=== PATIENT | male | born 1970 | race Caucasian/White ===

== ENCOUNTER 2016-10-26 00:46 | Observation (INO) | payer MEDICARE, OTHER ==
[~2016-10-26] VITALS: Ht 167.6 cm; Wt 78.9 kg
[2016-10-26] VITALS (13 sets, daily range): BP systolic 115–161; BP diastolic 56–87
[~2016-10-26 00:46] MED LIST: AMIT50TA PO; AUGM500T34 PO; BACITAB3 PO; BENA5TA PO; FLAG500T PO; INSUNSD SC; LYRI75CA PO; OXYC20TA21 PO
[2016-10-26] MEDS ORDERED: TOUJ1.2I SC (03:01)
[2016-10-26] MEDS ORDERED: INSULIN HUMAN REGULAR 100 UNITS in NS 99 ML IV SCH (03:01)
[2016-10-26] MEDS ORDERED: NS 1,000 ML IV SCH (03:01)
--- NOTE | 2016-10-26 03:21 | HPEPDOC ---
Medical History and Physical Date of Admission Oct 26, 2016 at 02:30 History and Physical PRIMARY CARE PROVIDER: ATTENDING: Savannah Arteaga MD CHIEF COMPLAINT: Nausea/vomiting HISTORY OF PRESENT ILLNESS: This is a 46-year-old type 1 diabetic with peripheral neuropathy who presented to [facility] complaining of nausea/vomiting and found to have DKA. The patient was transferred here for further management of his DKA. Patient states that he had been taking levemir 60 units a.m., 20 units afternoon , 20 units p.m., and on Tuesday he was changed to 15 units daily of toujeo by his primary care physician. Patient denies any recent upper respiratory tract symptoms, no dysuria, no diarrhea. No source of infection. Patient denies chest pain/restless/palpitations. Patient had nausea and vomited his cereal this morning. States that he's been having epigastric pain since this morning. Upon presentation to [facility], patient's states his abdominal pain is completely resolved. He is no longer nauseous or vomiting. At [facility], patient was noted to have DKA with a Anion gap of 27, sodium 128, blood sugar 630, potassium 5.0, creatinine 1.6, cardiac enzymes negative, lactic acid 2.7, A1c 10.5, the WBC 14, lipase within normal limits. Patient also had a CT of the abdomen and pelvis which was relatively unremarkable however hiss bladder was distended and it was noted that bladder outlet syndrome should be excluded. The patient's stated that he had voided at [facility] and was noted that he voided 500 mL prior to coming to [facility]. PAST MEDICAL HISTORY: As per HPI PAST SURGICAL HISTORY: Cholecystectomy, hernia repair SOCIAL HISTORY: Occasional alcohol, no tobacco or illicit drugs. FAMILY HISTORY: M, B - DM ALLERGIES: Please see below. REVIEW OF SYSTEMS: HEENT: Denies sore throat/headache CARDIOVASCULAR: Denies chest pain/palpitations RESPIRATORY: No shortness of breath/cough GASTROINTESTINAL: + nausea/vomiting GENITOURINARY: Denies dysuria/urinary urgency. MUSCULOSKELETAL: Denies myalgias/arthralgias NEUROLOGICAL: Denies any focal weakness Rest of ROS negative. HOME MEDICATIONS: Please see below. PHYSICAL EXAMINATION: Vitals: (see below) General: No acute distress, laying comfortably in bed. HEENT: Moist mucous membranes. Neck: No JVD or lymphadenopathy Cardiac: RRR, No murmurs Pulm: Clear to auscultation b/l. No wheezing, rhonchi Abd: NT/ND + BS Ext: No edema or cyanosis LABORATORY DATA: See below. IMAGING: MICROBIOLOGY: Please see below. ASSESSMENT/PLAN: 1. DKA- likely secondary to a recent change in the patient's insulin. Patient states he is compliant. No source of infection. EKG with sinus tachycardia with no acute ST changes. Cardiac enzymes negative. We'll continue insulin drip and continue to monitor the anion gap. Patient has received a total 3 L normal saline thus far. Will be continued on normal saline at 200 mL an hour. Continue insulin drip protocol and monitor in ICU. 2. Diabetic neuropathy- on Lyrica 3. Hypertension- on benazepril DVT prophylaxis- heparin subcutaneous Patient will be followed by Dr. Savannah Arteaga starting 10/18/16 7 AM. Vital Signs Vital Signs Date Time Temp Pulse Resp B/P Pulse Ox O2 Delivery O2 Flow Rate FiO2 10/26/16 02:45 99.0 98 18 121/63 97 Room Air Home Medications Scheduled (Ene Baird) 300 Unit/Ml Inj 15 UNIT SC DAILY Benazepril HCl (Benazepril HCl) 5 Mg Tab 5 MG PO DAILY Pregabalin (Lyrica) 75 Mg Cap 75 MG PO BID Allergies Coded Allergies: Gabapentin (Verified Adverse Reaction, Intermediate, LEG SWELLING, 10/09/14 ) NOE VALERIO MD Oct 26, 2016 03:21
[2016-10-26 03:41] LABS: VENOUS BASE EXCESS -12.1 (-2.0-2.0); VENOUS O2 SATURATION 98.9 % (60.0-80.0); VENOUS PARTIAL PRESSURE CO2 26.8 mmHg (38.0-50.0); VENOUS PARTIAL PRESSURE O2 146.4 mmHg (30.0-50.0); VENOUS STANDARD HCO3 15.1 MEQ/L; VENOUS TOTAL CO2 13.5 MEQ/L (24.0-28.0)
[2016-10-26] MEDS: INSULIN IV RATE CHANGE DOCUMENTATION ML/HR XX SCH ×3 (03:48→05:58)
[2016-10-26 04:02] LABS: ALBUMIN 3.3 GM/DL (3.2-5.2); ALBUMIN/GLOBULIN RATIO 1.18 (1.00-1.93); BILIRUBIN,TOTAL 0.6 MG/DL (0.2-1.0); CALCIUM LEVEL 7.5 MG/DL (8.5-10.1); CREATININE FOR GFR 1.61 MG/DL (0.70-1.30); PHOSPHORUS LEVEL 2.4 MG/DL (2.5-4.9); POTASSIUM SERUM 4.5 MEQ/L (3.5-5.1); TOTAL PROTEIN 6.1 GM/DL (6.4-8.2)
[2016-10-26] MEDS ORDERED: D5W/0.45% SODIUM CHLORIDE 1,000 ML IV SCH (04:15)
[2016-10-26] MEDS ORDERED: AMIT75TA PO (04:16)
[2016-10-26] MEDS ORDERED: BENA5TA PO (04:16)
[2016-10-26] MEDS ORDERED: ZANA4TAB PO (04:22)
[2016-10-26] MEDS ORDERED: TIZA2TA PO (04:22)
--- NOTE | 2016-10-26 05:00 | REPUSA ---
CLINICAL HISTORY: Congestion. COMMENTS: Single view of the chest reveals no evidence of active pleural or pulmonary parenchymal abnormality. The heart, mediastinum and pulmonary vessels appear normal. IMPRESSION: NORMAL CHEST. Thank you for your kind referral of this patient.
[2016-10-26] MEDS: D5W/0.45% SODIUM CHLORIDE 1,000 ML IV SCH ×2 (05:06→09:49)
[2016-10-26] MEDS: HEPARIN SOD (PORCINE) 5000 UNITS/ML VIAL SC SCH ×3 (05:58→21:28)
[2016-10-26 07:17] LABS: VENOUS BASE EXCESS -4.7 (-2.0-2.0); VENOUS O2 SATURATION 98.4 % (60.0-80.0); VENOUS PARTIAL PRESSURE CO2 39.5 mmHg (38.0-50.0); VENOUS PARTIAL PRESSURE O2 125.6 mmHg (30.0-50.0); VENOUS STANDARD HCO3 20.6 MEQ/L; VENOUS TOTAL CO2 21.9 MEQ/L (24.0-28.0)
[2016-10-26 07:39] LABS: ANION GAP 9 MEQ/L (8-16); BLOOD UREA NITROGEN 24 MG/DL (7-18); CALCIUM LEVEL 7.7 MG/DL (8.5-10.1); CARBON DIOXIDE LEVEL 22 MEQ/L (21-32); CHLORIDE LEVEL 108 MEQ/L (98-107); CREATININE FOR GFR 1.39 MG/DL (0.70-1.30); GLOMERULAR FILTRATION RATE 58.1 (>60); GLUCOSE, FASTING 236 MG/DL (70-105); POTASSIUM SERUM 4.3 MEQ/L (3.5-5.1); SODIUM LEVEL 139 MEQ/L (136-145)
[2016-10-26] MEDS ORDERED: LEVEMIR (INSULIN DETEMIR) 1 UNITS/0.01ML SC ONE ×2 (08:00→08:15)
[2016-10-26] MEDS ORDERED: GLUCAGON FOR INJ 1 MG VIAL (J1610) SC PRN (08:00)
[2016-10-26] MEDS ORDERED: GLUCOSE 4 GM CHEW TABLET PO PRN (08:00)
[2016-10-26] MEDS ORDERED: DEXTROSE 50% 50 ML SYRINGE IV PRN (08:00)
[2016-10-26 08:29] LABS: BASO # 0.1 K/mm3 (0.0-0.2); BASO % 0.5 % (0.0-1.0); EOS # 0.1 K/mm3 (0.0-0.50); EOS % 0.8 % (0.0-3.0); LARGE UNSTAINED CELL # 0.2 K/mm3 (0.0-0.4); LARGE UNSTAINED CELL % 1.7 % (0.0-4.0); LYMPH # 2.2 K/mm3 (1.5-4.5); LYMPH % 17.4 % (24.0-44.0); MEAN CORPUSCULAR HEMOGLOBIN 29.5 pg (27.0-33.0); MEAN CORPUSCULAR HGB CONC 33.6 g/dl (32.0-36.5); MEAN CORPUSCULAR VOLUME 87.8 fl (80.0-96.0); MONO # 0.7 K/mm3 (0.0-0.8); MONO % 5.2 % (0.0-5.0); NEUTROPHILS # 9.5 K/mm3 (1.8-7.7); NEUTROPHILS % 74.4 % (36.0-66.0); PLATELET COUNT, AUTOMATED 256 k/mm3 (150-450); RED CELL DISTRIBUTION WIDTH 12.7 % (11.5-14.5); WHITE BLOOD COUNT 12.7 K/mm3 (4.0-10.0)
[2016-10-26] MEDS: NS 1,000 ML IV SCH ×2 (09:48→21:29)
[2016-10-26 11:26] LABS: ANION GAP 9 MEQ/L (8-16); BLOOD UREA NITROGEN 22 MG/DL (7-18); CALCIUM LEVEL 7.8 MG/DL (8.5-10.1); CARBON DIOXIDE LEVEL 23 MEQ/L (21-32); CHLORIDE LEVEL 108 MEQ/L (98-107); CREATININE FOR GFR 1.32 MG/DL (0.70-1.30); GLOMERULAR FILTRATION RATE > 60.0 (>60); GLUCOSE, FASTING 259 MG/DL (70-105); POTASSIUM SERUM 4.5 MEQ/L (3.5-5.1); SODIUM LEVEL 140 MEQ/L (136-145)
[2016-10-26] MEDS: HumaLOG INSULIN (NovoLOG) PER UNIT SC SCH ×2 (12:02→17:54)
[2016-10-26] MEDS ORDERED: HumaLOG INSULIN (NovoLOG) PER UNIT SC SCH (21:00)
[2016-10-26] MEDS ORDERED: LEVEMIR (INSULIN DETEMIR) 1 UNITS/0.01ML SC SCH (21:00)
[2016-10-27] MEDS: NS 1,000 ML IV SCH (05:27)
[2016-10-27] MEDS: HEPARIN SOD (PORCINE) 5000 UNITS/ML VIAL SC SCH (05:27)
[2016-10-27 06:00] VITALS: BP 141/76
[2016-10-27 07:09] LABS: BASO % 0.7 % (0.0-1.0); EOS # 0.4 K/mm3 (0.0-0.50); LARGE UNSTAINED CELL # 0.2 K/mm3 (0.0-0.4); LARGE UNSTAINED CELL % 2.9 % (0.0-4.0); LYMPH # 2.5 K/mm3 (1.5-4.5); LYMPH % 30.5 % (24.0-44.0); MEAN CORPUSCULAR HEMOGLOBIN 29.9 pg (27.0-33.0); MEAN CORPUSCULAR HGB CONC 34.3 g/dl (32.0-36.5); MEAN CORPUSCULAR VOLUME 87.1 fl (80.0-96.0); MONO # 0.5 K/mm3 (0.0-0.8); MONO % 6.9 % (0.0-5.0); PLATELET COUNT, AUTOMATED 225 k/mm3 (150-450); RED CELL DISTRIBUTION WIDTH 13.1 % (11.5-14.5); WHITE BLOOD COUNT 7.4 K/mm3 (4.0-10.0)
[2016-10-27 07:15] LABS: ANION GAP 6 MEQ/L (8-16); BLOOD UREA NITROGEN 14 MG/DL (7-18); CALCIUM LEVEL 7.8 MG/DL (8.5-10.1); CARBON DIOXIDE LEVEL 26 MEQ/L (21-32); CHLORIDE LEVEL 111 MEQ/L (98-107); CREATININE FOR GFR 1.02 MG/DL (0.70-1.30); GLOMERULAR FILTRATION RATE > 60.0 (>60); GLUCOSE, FASTING 56 MG/DL (70-105); POTASSIUM SERUM 3.9 MEQ/L (3.5-5.1); SODIUM LEVEL 143 MEQ/L (136-145)
[2016-10-27] MEDS: HumaLOG INSULIN (NovoLOG) PER UNIT SC SCH (07:30)
[2016-10-27] MEDS ORDERED: LEVEMIR (INSULIN DETEMIR) 1 UNITS/0.01ML SC SCH ×3 (09:00→21:00)
[2016-10-27] MEDS ORDERED: LEVE1INJ5 SC ×2 (09:51)
[2016-10-27] MEDS ORDERED: TOUJ1.2I SC ×2 (10:38→10:39)
--- NOTE | 2016-10-27 13:14 | DSES ---
DATE OF ADMISSION: 10/26/2016 DATE OF DISCHARGE: 10/27/2016 ATTENDING PHYSICIAN: Dr. Savannah Arteaga PRIMARY CARE PHYSICIAN: Unknown. CONSULTING PHYSICIANS: None. CONDITION ON DISCHARGE: Stable. FINAL DIAGNOSIS: Diabetic ketoacidosis likely secondary to recent change in the patient's insulin to lower amount. PROCEDURES: None. HISTORY OF PRESENT ILLNESS: The patient is a 46-year-old male with a past medical history of type 1 diabetes and peripheral neuropathy who presented from [facility] complaining of nausea, vomiting, and abdominal pain. He was found to have a diabetic ketoacidosis (DKA) at [facility]. He was started on insulin drip, and he was transferred to [facility]. Upon questioning the patient, the patient noted that he was initially on Levemir 16 units in the a.m. and 20 in the afternoon and 20 units in the p.m. However, the patient was recently changed to insulin glargine for 15 units daily by his primary care physician. The patient denies any recent history of upper respiratory tract infections, dysuria, diarrhea, or any cough. The patient denies any fevers at home. The patient was admitted for DKA. HOSPITAL COURSE: 1. Diabetic ketoacidosis, likely secondary to a recent change in the patient's insulin. Clinically, the patient presented with nausea, vomiting, and abdominal pain but has clinically improved significantly. Physical was unrevealing. There have been no sources of infection. Electrocardiogram (EKG) revealed sinus tachycardia without any ischemic changes. Cardiac enzymes have been negative. The patient was initially started on insulin drip, as well as intravenous (IV) fluid hydration. As his glucose levels went down, he was changed to D5 half normal saline (NS). The patient's anion gap eventually closed after receiving adequate hydration and insulin coverage, at which point he was transitioned back to long-acting insulin with Levemir. 2. Acute kidney injury. The patient had an elevated creatinine, which was likely secondary to prerenal etiology. The patient received IV fluid hydration, and his creatinine has now normalized. 3. Diabetic neuropathy. He is to continue with Lyrica. 4. Hypertension. He can continue with benazepril. 5. Deep venous thrombosis (DVT) prophylaxis. He has been on heparin subcutaneous. DISCHARGE MEDICATIONS: The patient has been discharged home with the following medications: - amitriptyline 75 mg by mouth nightly - benazepril 5 mg by mouth every day - Lyrica 75 mg by mouth twice a day - tizanidine one tablet by mouth three times a day as needed muscle spasms His new medications include: - Toujeo which is insulin glargine at 40 units in the morning and 20 units in the evening The patient has been advised to remain compliant with treatment and medications and followup with his primary care provider within the next 7 days. He has been advised to return to the emergency room if he experiences any problems. TIME SPENT ON DISCHARGE: 35 minutes.
== END 2016-10-27 11:39 | disposition home or self-care (01) ==
LOC: M ICU 02:30 → INTOOBSV 02:30 → M MSPAV 18:03
PROVIDERS: ADMIT Internal Medicine; ATTEND Internal Medicine
DX: E10.10 Type 1 diabetes mellitus with ketoacidosis without coma (principal); N17.9 Acute kidney failure, unspecified; R00.0 Tachycardia, unspecified; E10.40 Type 1 diabetes mellitus with diabetic neuropathy, unspecified; I10 Essential (primary) hypertension; Z79.899 Other long term (current) drug therapy; Z88.8 Allergy status to other drugs, medicaments and biological substances
CPT/HCPCS: 36415; 71010; 80048; 80053; 81001; 82010; 82550; 82553; 82803; 83605; 83735; 84100; 84484; 85025; 96361; 96372; 96374; G0378

== ENCOUNTER → 2016-12-09 | Outpatient (REF) | payer MEDICARE, OTHER ==
[~2016-12-09] MED LIST changes: +AMIT75TA PO; +LEVE1INJ5 SC; +TIZA2TA PO; +TOUJ1.2I SC; +ZANA4TAB PO
[2016-12-09 11:40] LABS: MEAN CORPUSCULAR HEMOGLOBIN 29.6 pg (27.0-33.0); MEAN CORPUSCULAR HGB CONC 33.3 g/dl (32.0-36.5); RED CELL DISTRIBUTION WIDTH 12.9 % (11.5-14.5); WHITE BLOOD COUNT 11.2 K/mm3 (4.0-10.0)
[2016-12-09 12:59] LABS: ALBUMIN 3.7 GM/DL (3.2-5.2); ALBUMIN/GLOBULIN RATIO 1.23 (1.00-1.93); ALKALINE PHOSPHATASE 186 U/L (45-117); ALT/SGPT 170 U/L (12-78); ANION GAP 8 MEQ/L (8-16); AST/SGOT 41 U/L (15-37); BILIRUBIN,TOTAL 0.4 MG/DL (0.2-1.0); BLOOD UREA NITROGEN 19 MG/DL (7-18); CALCIUM LEVEL 8.7 MG/DL (8.5-10.1); CARBON DIOXIDE LEVEL 26 MEQ/L (21-32); CHLORIDE LEVEL 107 MEQ/L (98-107); CREATININE FOR GFR 1.25 MG/DL (0.70-1.30); GLOMERULAR FILTRATION RATE > 60.0 (>60); GLUCOSE, FASTING 242 MG/DL (70-105); POTASSIUM SERUM 4.5 MEQ/L (3.5-5.1); SODIUM LEVEL 141 MEQ/L (136-145); TOTAL PROTEIN 6.7 GM/DL (6.4-8.2)
== END ==
LOC: M SFHCLERA 09:24
PROVIDERS: ATTEND Family Medicine
DX: E10.8 Type 1 diabetes mellitus with unspecified complications (principal); R94.6 Abnormal results of thyroid function studies
CPT/HCPCS: 80053; 83036; 84443; 85027; G0463

== ENCOUNTER → 2017-02-10 | Outpatient (CLI) | payer MEDICARE, OTHER ==
[~2017-02-10] MED LIST changes: +BACITAB PO; -BACITAB3 PO; -OXYC20TA21 PO; +OXYC20TA40 PO
--- NOTE | 2017-02-10 10:24 | REP ---
ABDOMEN RADIOGRAPH: Two views. HISTORY: Upper abdominal discomfort. Constipation. Comparison radiographs are from November 27, 2015. FINDINGS: Two views of the abdomen demonstrate air and some stool in the right and sigmoid segments of the colon. There is some air and fluid content in the descending segment of the colon. Bowel gas pattern is felt to be normal. No small or large bowel dilation is seen. There is a bone island in the left iliac bone unchanged. No other significant bony abnormality is seen. IMPRESSION: Unremarkable bowel gas pattern. Signed by Romie Jarrell MD 02/10/2017 10:45 A
== END ==
LOC: M LRY 09:41
PROVIDERS: ATTEND Nurse Practitioner Family
DX: R10.10 Upper abdominal pain, unspecified (principal); E10.8 Type 1 diabetes mellitus with unspecified complications; K52.9 Noninfective gastroenteritis and colitis, unspecified; R11.10 Vomiting, unspecified; Z79.4 Long term (current) use of insulin; Z79.899 Other long term (current) drug therapy
CPT/HCPCS: 74000; 81002; 82948; 87507; G0463

== ENCOUNTER → 2017-02-10 | Outpatient (REF) | payer MEDICARE, OTHER | LOC: M SFHCLERA 09:34 | PROVIDERS: ATTEND Nurse Practitioner Family | DX: R19.7 Diarrhea, unspecified (principal) ==

== ENCOUNTER → 2017-03-11 | Outpatient (REF) | payer MEDICARE, OTHER | LOC: M SFHCLERA 08:09 | PROVIDERS: ATTEND Physician Assistant | DX: R79.89 Other specified abnormal findings of blood chemistry (principal); E10.8 Type 1 diabetes mellitus with unspecified complications; Z53.8 Procedure and treatment not carried out for other reasons ==

== ENCOUNTER → 2017-03-14 | Outpatient (REF) | payer MEDICARE, OTHER | LOC: M SFHCLERA 07:37 | PROVIDERS: ATTEND Physician Assistant | DX: R79.89 Other specified abnormal findings of blood chemistry (principal); E10.8 Type 1 diabetes mellitus with unspecified complications; Z53.9 Procedure and treatment not carried out, unspecified reason ==

== ENCOUNTER → 2017-03-14 | Outpatient (CLI) | payer MEDICARE, OTHER ==
[2017-03-14 10:18] LABS: ANION GAP 9 MEQ/L (8-16); BLOOD UREA NITROGEN 20 MG/DL (7-18); CALCIUM LEVEL 8.3 MG/DL (8.5-10.1); CARBON DIOXIDE LEVEL 23 MEQ/L (21-32); CHLORIDE LEVEL 107 MEQ/L (98-107); CREATININE FOR GFR 1.11 MG/DL (0.70-1.30); GAMMA GLUTAMYLTRANSPEPTIDASE 66 U/L (15-85); GLOMERULAR FILTRATION RATE > 60.0 (>60); GLUCOSE, FASTING 212 MG/DL (70-105); POTASSIUM SERUM 4.7 MEQ/L (3.5-5.1); SODIUM LEVEL 139 MEQ/L (136-145)
== END ==
LOC: M LAB 08:53
PROVIDERS: ATTEND Physician Assistant
DX: R79.89 Other specified abnormal findings of blood chemistry (principal); E10.8 Type 1 diabetes mellitus with unspecified complications; Z79.4 Long term (current) use of insulin

== ENCOUNTER 2017-07-02 12:32 | Emergency (ER) | payer MEDICARE, OTHER ==
[~2017-07-02] VITALS: Ht 167.6 cm; Wt 77.3 kg
[2017-07-02] MEDS ORDERED: TRES1INJ SC (12:43)
[2017-07-02] MEDS ORDERED: NORCOTAB PO (13:44)
[2017-07-02 14:05] VITALS: BP 165/96
--- NOTE | 2017-07-02 14:34 | REP ---
RIGHT TOES, FOUR VIEWS: HISTORY: Trauma. There is no acute fracture or dislocation. The joint spaces are normal in appearance. IMPRESSION: There is no acute fracture or dislocation. Signed by Demian Barragan MD 07/02/2017 02:54 P
== END 2017-07-02 14:14 | disposition home or self-care (01) ==
LOC: M ED 12:32
DX: S99.921A Unspecified injury of right foot, initial encounter (principal); W22.09XA Striking against other stationary object, initial encounter; Y92.098 Other place in other non-institutional residence as the place of occurrence of the external cause; Y93.89 Activity, other specified; Y99.8 Other external cause status; E11.9 Type 2 diabetes mellitus without complications; G89.29 Other chronic pain; Z79.899 Other long term (current) drug therapy; Z79.4 Long term (current) use of insulin; Z88.8 Allergy status to other drugs, medicaments and biological substances

== ENCOUNTER → 2017-07-18 | Outpatient (CLI) | payer MEDICARE, OTHER ==
[~2017-07-18] MED LIST changes: +NORCOTAB PO; +TRES1INJ SC
--- NOTE | 2017-07-18 14:42 | REP ---
RIGHT FOOT SERIES: Four views of the right foot are performed. There is a nondisplaced fracture of the first proximal phalanx with a vertical orientation. There is a nondisplaced fracture of the fifth proximal phalanx. No other acute fracture or dislocation is seen. There is mild inferior calcaneal spurring. IMPRESSION: Nondisplaced fractures of the first and fifth proximal phalanges. Signed by John Terry MD 07/18/2017 05:58 P
== END ==
LOC: M LRY 13:28
PROVIDERS: ATTEND Family Medicine
DX: S92.514A Nondisplaced fracture of proximal phalanx of right lesser toe(s), initial encounter for closed fracture (principal); W22.09XA Striking against other stationary object, initial encounter; X58.XXXA Exposure to other specified factors, initial encounter; Y92.9 Unspecified place or not applicable; Y93.9 Activity, unspecified

== ENCOUNTER → 2017-07-18 | Outpatient (REF) | payer MEDICARE, OTHER | LOC: M SFHCLERA 13:37 | PROVIDERS: ATTEND Family Medicine | DX: M79.674 Pain in right toe(s) (principal); Z53.8 Procedure and treatment not carried out for other reasons ==

== ENCOUNTER → 2017-07-19 | Outpatient (REF) | payer MEDICARE, OTHER ==
[2017-07-19 11:22] LABS: BASO # 0.1 10^3/uL (0.0-0.2); BASO % 0.9 % (0.0-1.0); EOS # 0.5 10^3/uL (0.0-0.50); EOS % 6.2 % (0.0-3.0); IMMATURE GRANULOCYTE % 0.5 % (0-0); LYMPH # 2.9 10^3/uL (1.5-4.5); LYMPH % 35.7 % (24.0-44.0); MEAN CORPUSCULAR HEMOGLOBIN 29.6 pg (27.0-33.0); MEAN CORPUSCULAR HGB CONC 34.1 g/dl (32.0-36.5); MEAN CORPUSCULAR VOLUME 86.8 fl (80.0-96.0); MONO # 0.7 10^3/uL (0.0-0.8); MONO % 8.4 % (0.0-5.0); NEUTROPHILS # 3.9 10^3/uL (1.8-7.7); NEUTROPHILS % 48.3 % (36.0-66.0); PLATELET COUNT, AUTOMATED 275 10^3/uL (150-450); RED CELL DISTRIBUTION WIDTH 12.3 % (11.5-14.5); WHITE BLOOD COUNT 8.1 10^3/uL (4.0-10.0)
[2017-07-19 11:33] LABS: ANION GAP 8 MEQ/L (8-16); BLOOD UREA NITROGEN 17 MG/DL (7-18); CALCIUM LEVEL 8.2 MG/DL (8.5-10.1); CARBON DIOXIDE LEVEL 29 MEQ/L (21-32); CHLORIDE LEVEL 97 MEQ/L (98-107); CREATININE FOR GFR 1.19 MG/DL (0.70-1.30); GLOMERULAR FILTRATION RATE > 60.0 (>60); GLUCOSE, FASTING 63 MG/DL (70-105); POTASSIUM SERUM 4.1 MEQ/L (3.5-5.1); SODIUM LEVEL 134 MEQ/L (136-145)
[2017-07-19 11:50] LABS: ERYTHROCYTE SEDIMENTATION RATE 4 mm/hr (0-15)
== END ==
LOC: M SFHCLERA 09:06
PROVIDERS: ATTEND Family Medicine
DX: M79.674 Pain in right toe(s) (principal)

== ENCOUNTER → 2017-08-22 | Outpatient (REF) | payer MEDICARE, OTHER ==
[2017-08-22 12:01] LABS: BASO # 0.1 10^3/uL (0.0-0.2); BASO % 0.4 % (0.0-1.0); EOS # 0.2 10^3/uL (0.0-0.50); EOS % 1.9 % (0.0-3.0); HEMATOCRIT 44.5 % (42.0-52.0); HEMOGLOBIN 14.7 g/dl (14.0-18.0); IMMATURE GRANULOCYTE # 0.1 10^3/uL (0-0); IMMATURE GRANULOCYTE % 0.8 % (0-0); LYMPH # 1.5 10^3/uL (1.5-4.5); LYMPH % 12.2 % (24.0-44.0); MEAN CORPUSCULAR HEMOGLOBIN 30.1 pg (27.0-33.0); MONO # 0.9 10^3/uL (0.0-0.8); MONO % 7.5 % (0.0-5.0); NEUTROPHILS # 9.5 10^3/uL (1.8-7.7); NEUTROPHILS % 77.2 % (36.0-66.0); PLATELET COUNT, AUTOMATED 255 10^3/uL (150-450); RED BLOOD COUNT 4.89 10^6/uL (4.30-6.10); RED CELL DISTRIBUTION WIDTH 13.3 % (11.5-14.5); WHITE BLOOD COUNT 12.4 10^3/uL (4.0-10.0)
[2017-08-22 12:09] LABS: ANION GAP 8 MEQ/L (8-16); BLOOD UREA NITROGEN 18 MG/DL (7-18); C REACTIVE PROTEIN QUANTITATIV < 0.30 MG/DL (0.00-0.30); CALCIUM LEVEL 8.8 MG/DL (8.5-10.1); CARBON DIOXIDE LEVEL 27 MEQ/L (21-32); CHLORIDE LEVEL 104 MEQ/L (98-107); GLOMERULAR FILTRATION RATE > 60.0 (>60); GLUCOSE, FASTING 55 MG/DL (70-100); POTASSIUM SERUM 4.2 MEQ/L (3.5-5.1); SODIUM LEVEL 139 MEQ/L (136-145)
[2017-08-22 12:49] LABS: ERYTHROCYTE SEDIMENTATION RATE 3 mm/hr (0-15)
== END ==
LOC: M SFHCLERA 08:27
DX: M79.674 Pain in right toe(s) (principal)
CPT/HCPCS: 80048

== ENCOUNTER → 2017-08-31 | Outpatient (REF) | payer MEDICARE, OTHER ==
[2017-08-31 12:17] LABS: CHOLESTEROL LEVEL 126 MG/DL (<200); HDL CHOLESTEROL 57 MG/DL (>40); LDL CHOLESTEROL 47.6 MG/DL (<100); NON-HDL-C 69 MG/DL; TRIGLYCERIDES LEVEL 107 MG/DL (<150)
[2017-08-31 12:50] LABS: MALB URINE SIEMENS 20.6 MG/L; MAU/CREAT RATIO 13.2 MCG/MG (0.0-30.0)
[2017-08-31 13:43] LABS: ESTIMATED AVERAGE GLUCOSE 200 MG/DL (60-110); HEMOGLOBIN A1c 8.6 %
== END ==
LOC: M SFHCLERA 08:09
DX: E10.8 Type 1 diabetes mellitus with unspecified complications (principal); E78.2 Mixed hyperlipidemia
CPT/HCPCS: 83036

== ENCOUNTER → 2018-02-24 | Outpatient (REF) | payer MEDICARE, OTHER | LOC: M SFHCLERA 07:49 | DX: R63.4 Abnormal weight loss (principal); R94.6 Abnormal results of thyroid function studies; E10.8 Type 1 diabetes mellitus with unspecified complications; E78.2 Mixed hyperlipidemia ==

== ENCOUNTER → 2018-02-27 | Outpatient (REF) | payer MEDICARE, OTHER ==
[2018-02-27 11:36] LABS: BASO # 0.1 10^3/uL (0.0-0.2); BASO % 0.8 % (0.0-1.0); EOS # 0.3 10^3/uL (0.0-0.50); EOS % 4.1 % (0.0-3.0); HEMATOCRIT 35.5 % (42.0-52.0); HEMOGLOBIN 12.2 g/dl (13.5-17.5); IMMATURE GRANULOCYTE % 0.6 % (0-3.0); LYMPH # 1.6 10^3/uL (1.5-4.5); LYMPH % 20.4 % (24.0-44.0); MEAN CORPUSCULAR HEMOGLOBIN 30.7 pg (27.0-33.0); MEAN CORPUSCULAR HGB CONC 34.4 g/dl (32.0-36.5); MEAN CORPUSCULAR VOLUME 89.2 fl (80.0-96.0); MONO # 0.5 10^3/uL (0.0-0.8); MONO % 6.7 % (0.0-5.0); NEUTROPHILS # 5.3 10^3/uL (1.8-7.7); NEUTROPHILS % 67.4 % (36.0-66.0); PLATELET COUNT, AUTOMATED 236 10^3/uL (150-450); RED BLOOD COUNT 3.98 10^6/uL (4.30-6.10); RED CELL DISTRIBUTION WIDTH 12.4 % (11.5-14.5); WHITE BLOOD COUNT 7.8 10^3/uL (4.0-10.0)
[2018-02-27 11:54] LABS: ESTIMATED AVERAGE GLUCOSE 275 MG/DL (60-110); HEMOGLOBIN A1c 11.2 %
[2018-02-27 12:03] LABS: ALBUMIN 3.1 GM/DL (3.2-5.2); ALBUMIN/GLOBULIN RATIO 1.07 (1.00-1.93); ALKALINE PHOSPHATASE 154 U/L (45-117); ALT/SGPT 61 U/L (12-78); ANION GAP 11 MEQ/L (8-16); AST/SGOT 30 U/L (7-37); BILIRUBIN,TOTAL 0.5 MG/DL (0.2-1.0); BLOOD UREA NITROGEN 19 MG/DL (7-18); CALCIUM LEVEL 8.1 MG/DL (8.5-10.1); CARBON DIOXIDE LEVEL 24 MEQ/L (21-32); CHLORIDE LEVEL 96 MEQ/L (98-107); CHOLESTEROL LEVEL 161 MG/DL (<200); CHOLESTEROL RISK RATIO 3.577 (<5); CREATININE FOR GFR 1.31 MG/DL (0.70-1.30); FREE T4 0.86 NG/DL (0.76-1.46); GLOMERULAR FILTRATION RATE > 60.0 (>60); HDL CHOLESTEROL 45 MG/DL (>40); NON-HDL-C 116 MG/DL; POTASSIUM SERUM 4.5 MEQ/L (3.5-5.1); SODIUM LEVEL 131 MEQ/L (136-145); TRIGLYCERIDES LEVEL 185 MG/DL (<150)
[2018-02-27 12:10] LABS: MALB URINE SIEMENS < 5.0 MG/L; MAU/CREAT RATIO 38.4 MCG/MG (0.0-30.0)
[2018-02-27 13:51] LABS: GLUCOSE, FASTING 627 MG/DL (70-100)
== END ==
LOC: M SFHCLERA 07:59
DX: R63.4 Abnormal weight loss (principal); R94.6 Abnormal results of thyroid function studies; E10.8 Type 1 diabetes mellitus with unspecified complications; E78.2 Mixed hyperlipidemia
CPT/HCPCS: 84443

== ENCOUNTER → 2018-04-25 | Outpatient (REF) | payer MEDICARE, OTHER ==
[2018-04-25 18:00] LABS: HEMATOCRIT 29.9 % (42.0-52.0); HEMOGLOBIN 10.2 g/dl (13.5-17.5); MEAN CORPUSCULAR HEMOGLOBIN 30.4 pg (27.0-33.0); MEAN CORPUSCULAR HGB CONC 34.1 g/dl (32.0-36.5); MEAN CORPUSCULAR VOLUME 89.3 fl (80.0-96.0); PLATELET COUNT, AUTOMATED 254 10^3/uL (150-450); RED BLOOD COUNT 3.35 10^6/uL (4.30-6.10); RED CELL DISTRIBUTION WIDTH 12.3 % (11.5-14.5); WHITE BLOOD COUNT 7.8 10^3/uL (4.0-10.0)
[2018-04-25 19:03] LABS: ALBUMIN 2.8 GM/DL (3.2-5.2); ALBUMIN/GLOBULIN RATIO 1.22 (1.00-1.93); ALKALINE PHOSPHATASE 144 U/L (45-117); ALT/SGPT 86 U/L (12-78); ANION GAP 11 MEQ/L (8-16); AST/SGOT 89 U/L (7-37); BILIRUBIN,TOTAL 0.3 MG/DL (0.2-1.0); BLOOD UREA NITROGEN 12 MG/DL (7-18); CALCIUM LEVEL 8.2 MG/DL (8.5-10.1); CARBON DIOXIDE LEVEL 26 MEQ/L (21-32); CHLORIDE LEVEL 104 MEQ/L (98-107); CREATININE FOR GFR 1.02 MG/DL (0.70-1.30); GLOMERULAR FILTRATION RATE > 60.0 (>56); GLUCOSE, FASTING 217 MG/DL (70-100); POTASSIUM SERUM 3.6 MEQ/L (3.5-5.1); SODIUM LEVEL 141 MEQ/L (136-145); TOTAL PROTEIN 5.1 GM/DL (6.4-8.2)
[2018-04-25 22:22] LABS: ESTIMATED AVERAGE GLUCOSE 286 MG/DL (60-110); HEMOGLOBIN A1c 11.6 %
== END ==
LOC: M SFHCLERA 11:08
DX: E10.8 Type 1 diabetes mellitus with unspecified complications (principal); R79.89 Other specified abnormal findings of blood chemistry
CPT/HCPCS: 84443

== ENCOUNTER → 2018-04-26 | Outpatient (REF) | payer MEDICARE, OTHER ==
[2018-04-26 11:41] LABS: APPEARANCE, URINE CLEAR (CLEAR); BACTERIA, URINE AUTO NEGATIVE (NEGATIVE); BILIRUBIN, URINE AUTO NEGATIVE (NEGATIVE); BLOOD, URINE BLOOD NEGATIVE (NEGATIVE); COLOR, URINE YELLOW (YELLOW); GLUCOSE, URINE (UA) AUTO 3+ mg/dL (NEGATIVE); KETONE, URINE AUTO NEGATIVE (NEGATIVE); LEUKOCYTE ESTERASE, URINE AUTO NEGATIVE (NEGATIVE); MUCUS, URINE SMALL (NEGATIVE); NITRITE, URINE AUTO NEGATIVE (NEGATIVE); PROTEIN, URINE AUTO NEGATIVE (NEGATIVE); RBC, URINE AUTO 0 /HPF (0-3); SPECIFIC GRAVITY URINE AUTO 1.025 (1.002-1.035); SQUAMOUS EPITHELIAL CELL UR AU 0 /HPF (0-6); UROBILINOGEN, URINE AUTO 0.2 mg/dL (0.0-2.0); WBC, URINE AUTO 1 /HPF (0-3)
== END ==
LOC: M SFHCLERA 11:21
DX: E10.8 Type 1 diabetes mellitus with unspecified complications (principal)
CPT/HCPCS: 81001

== ENCOUNTER → 2018-05-09 | Outpatient (REF) | payer MEDICARE, OTHER ==
[2018-05-09 12:11] LABS: FERRITIN 143 NG/ML (26-388); IRON (FE) 110 UG/DL (65-175); PERCENT SATURATION 28.6 % (19.7-50.0); TOTAL IRON BINDING CAPACITY 384 UG/DL (250-450)
== END ==
LOC: M SFHCLERA 08:21
DX: D64.9 Anemia, unspecified (principal)
CPT/HCPCS: 82746

== ENCOUNTER → 2018-06-12 | Outpatient (REF) | payer MEDICARE, OTHER ==
[2018-06-12 12:04] LABS: ALBUMIN 3.1 GM/DL (3.2-5.2); ALBUMIN/GLOBULIN RATIO 1.07 (1.00-1.93); ALKALINE PHOSPHATASE 208 U/L (45-117); ALT/SGPT 138 U/L (12-78); ANION GAP 8 MEQ/L (8-16); AST/SGOT 64 U/L (7-37); BILIRUBIN,TOTAL 0.3 MG/DL (0.2-1.0); BLOOD UREA NITROGEN 17 MG/DL (7-18); CALCIUM LEVEL 8.6 MG/DL (8.5-10.1); CARBON DIOXIDE LEVEL 27 MEQ/L (21-32); CHLORIDE LEVEL 106 MEQ/L (98-107); CREATININE FOR GFR 1.07 MG/DL (0.70-1.30); GLOMERULAR FILTRATION RATE > 60.0 (>56); GLUCOSE, FASTING 61 MG/DL (70-100); POTASSIUM SERUM 4.7 MEQ/L (3.5-5.1); SODIUM LEVEL 141 MEQ/L (136-145)
[2018-06-12 12:09] LABS: HEPATITIS B SURFACE ANTIGEN NEGATIVE (NEGATIVE)
[2018-06-12 12:37] LABS: HEPATITIS C VIRUS ABY INDEX 0.1 INDEX (<0.8)
[2018-06-12 12:38] LABS: HEPATITIS B CORE ANTIBODY IGM NEGATIVE (NEGATIVE)
[2018-06-12 12:39] LABS: HEPATITIS A ANTIBODY IGM NEGATIVE (NEGATIVE)
== END ==
LOC: M SFHCLERA 08:47
DX: R94.5 Abnormal results of liver function studies (principal); Z23 Encounter for immunization
CPT/HCPCS: 80053

== ENCOUNTER → 2018-07-19 | Outpatient (REF) | payer MEDICARE, OTHER | LOC: M SFHCLERA 11:34 | DX: R91.1 Solitary pulmonary nodule (principal); Z53.8 Procedure and treatment not carried out for other reasons ==

== ENCOUNTER → 2018-07-20 | Outpatient (REF) | payer MEDICARE, OTHER ==
[2018-07-20 11:37] LABS: BLOOD UREA NITROGEN 16 MG/DL (7-18); CALCIUM LEVEL 7.7 MG/DL (8.5-10.1); CARBON DIOXIDE LEVEL 28 MEQ/L (21-32); CHLORIDE LEVEL 103 MEQ/L (98-107); CREATININE FOR GFR 0.98 MG/DL (0.70-1.30); GLOMERULAR FILTRATION RATE > 60.0 (>56); GLUCOSE, FASTING 206 MG/DL (70-100); POTASSIUM SERUM 4.5 MEQ/L (3.5-5.1); SODIUM LEVEL 139 MEQ/L (136-145)
[2018-07-20 11:38] LABS: ALBUMIN 2.5 GM/DL (3.2-5.2); ALT/SGPT 92 U/L (12-78); BILIRUBIN,TOTAL 0.2 MG/DL (0.2-1.0); TOTAL PROTEIN 5.3 GM/DL (6.4-8.2)
== END ==
LOC: M SFHCLERA 07:35
PROVIDERS: ATTEND Family Medicine
DX: R91.1 Solitary pulmonary nodule (principal)

== ENCOUNTER → 2018-09-27 | Outpatient (REF) | payer MEDICARE, OTHER | LOC: M SFHCLERA 10:57 | PROVIDERS: ATTEND Family Medicine | DX: E10.8 Type 1 diabetes mellitus with unspecified complications (principal); R94.5 Abnormal results of liver function studies; E78.5 Hyperlipidemia, unspecified; Z53.8 Procedure and treatment not carried out for other reasons ==

== ENCOUNTER → 2018-09-28 | Outpatient (REF) | payer MEDICARE, OTHER ==
[2018-09-28 11:44] LABS: APPEARANCE, URINE CLEAR (CLEAR); BACTERIA, URINE AUTO NEGATIVE (NEGATIVE); BILIRUBIN, URINE AUTO NEGATIVE (NEGATIVE); BLOOD, URINE BLOOD NEGATIVE (NEGATIVE); COLOR, URINE STRAW (YELLOW); GLUCOSE, URINE (UA) AUTO 3+ mg/dL (NEGATIVE); KETONE, URINE AUTO TRACE mg/dL (NEGATIVE); LEUKOCYTE ESTERASE, URINE AUTO NEGATIVE (NEGATIVE); NITRITE, URINE AUTO NEGATIVE (NEGATIVE); PROTEIN, URINE AUTO NEGATIVE (NEGATIVE); RBC, URINE AUTO 0 /HPF (0-3); SPECIFIC GRAVITY URINE AUTO 1.017 (1.002-1.035); SQUAMOUS EPITHELIAL CELL UR AU 0 /HPF (0-6); UROBILINOGEN, URINE AUTO 0.2 mg/dL (0.0-2.0); WBC, URINE AUTO 2 /HPF (0-3)
[2018-09-28 11:49] LABS: HEMOGLOBIN A1c 9.1 %
[2018-09-28 11:57] LABS: ALBUMIN 3.3 GM/DL (3.2-5.2); ALT/SGPT 31 U/L (12-78); BILIRUBIN,TOTAL 0.3 MG/DL (0.2-1.0); BLOOD UREA NITROGEN 13 MG/DL (7-18); CALCIUM LEVEL 8.3 MG/DL (8.5-10.1); CARBON DIOXIDE LEVEL 25 MEQ/L (21-32); CHLORIDE LEVEL 99 MEQ/L (98-107); CHOLESTEROL LEVEL 192 MG/DL (<200); CHOLESTEROL RISK RATIO 2.704 (<5); GLOMERULAR FILTRATION RATE > 60.0 (>56); GLUCOSE, FASTING 434 MG/DL (70-100); HDL CHOLESTEROL 71 MG/DL (>40); LDL CHOLESTEROL 98 MG/DL (<100); NON-HDL-C 121 MG/DL; SODIUM LEVEL 132 MEQ/L (136-145); TOTAL PROTEIN 6.2 GM/DL (6.4-8.2); TRIGLYCERIDES LEVEL 117 MG/DL (<150)
[2018-09-28 12:46] LABS: CREATININE, URINE 56.7 MG/DL; MALB URINE SIEMENS 28.4 MG/L
== END ==
LOC: M SFHCLERA 07:51
PROVIDERS: ATTEND Family Medicine
DX: E10.8 Type 1 diabetes mellitus with unspecified complications (principal); R94.5 Abnormal results of liver function studies; E78.5 Hyperlipidemia, unspecified

== ENCOUNTER → 2018-12-28 | Outpatient (REF) | payer MEDICARE, OTHER ==
[~2018-12-28] MED LIST changes: +HYDR-3715 PO; -NORCOTAB PO
== END ==
LOC: M SFHCLERA 09:21
PROVIDERS: ATTEND Family Medicine
DX: R94.5 Abnormal results of liver function studies (principal); E10.8 Type 1 diabetes mellitus with unspecified complications; E78.5 Hyperlipidemia, unspecified; Z53.8 Procedure and treatment not carried out for other reasons

== ENCOUNTER → 2018-12-29 | Outpatient (REF) | payer MEDICARE, OTHER ==
[2018-12-29 11:38] LABS: ALBUMIN 3.4 GM/DL (3.2-5.2); ALT/SGPT 19 U/L (12-78); BILIRUBIN,TOTAL 0.3 MG/DL (0.2-1.0); BLOOD UREA NITROGEN 19 MG/DL (7-18); CALCIUM LEVEL 8.8 MG/DL (8.5-10.1); CARBON DIOXIDE LEVEL 28 MEQ/L (21-32); CHLORIDE LEVEL 108 MEQ/L (98-107); CHOLESTEROL LEVEL 158 MG/DL (<200); CREATININE FOR GFR 1.13 MG/DL (0.70-1.30); GLOMERULAR FILTRATION RATE > 60.0 (>56); GLUCOSE, FASTING 50 MG/DL (70-100); HDL CHOLESTEROL 61 MG/DL (>40); LDL CHOLESTEROL 81 MG/DL (<100); NON-HDL-C 97 MG/DL; POTASSIUM SERUM 5.2 MEQ/L (3.5-5.1); SODIUM LEVEL 141 MEQ/L (136-145); TOTAL PROTEIN 5.9 GM/DL (6.4-8.2); TRIGLYCERIDES LEVEL 78 MG/DL (<150)
[2018-12-29 12:37] LABS: HEMOGLOBIN A1c 9.4 %
== END ==
LOC: M SFHCLERA 07:45
PROVIDERS: ATTEND Family Medicine
DX: R94.5 Abnormal results of liver function studies (principal); E10.8 Type 1 diabetes mellitus with unspecified complications; E78.5 Hyperlipidemia, unspecified

== ENCOUNTER → 2019-01-02 | Outpatient (CLI) | payer MEDICARE, OTHER ==
[~2019-01-02] MED LIST changes: +ISOVUE-370 76% 100ML VIAL (Q9967) As Ordered ONE
--- NOTE | 2019-01-02 18:02 | REP ---
CT CHEST WITH CONTRAST: HISTORY: Pulmonary nodule. CONTRAST: Isovue-370, 75 mL. A 4 mm parenchymal nodule is present in the right upper lobe seen in image number 44. The left lung is clear. There is no pleural effusion. The heart is normal in size. There is no aneurysm. Small lymph nodes less than 1 cm in size are present in the mediastinum. Minimal degenerative change is present in the thoracic spine. The patient is status-post cholecystectomy. IMPRESSION:There is a 4 mm parenchymal nodule in the right upper lobe. A repeat CT scan may be helpful for further evaluation. Electronically Signed by Demian Barragan MD 01/02/2019 06:13 P
== END ==
LOC: M RAD 16:10
PROVIDERS: ATTEND Family Medicine
DX: R91.1 Solitary pulmonary nodule (principal)
CPT/HCPCS: 71260; Q9967

== ENCOUNTER 2019-05-26 11:35 | Emergency (ER) | payer MEDICARE ==
[~2019-05-26] VITALS: Ht 165.1 cm; Wt 66.6 kg
[~2019-05-26 11:35] MED LIST changes: -ISOVUE-370 76% 100ML VIAL (Q9967) As Ordered ONE
[2019-05-26] MEDS ORDERED: NOVOINJ SC (11:53)
[2019-05-26] MEDS ORDERED: TOUJ1.2I SC (11:53)
[2019-05-26] MEDS ORDERED: ONDANSETRON 4MG/2ML VIAL (J2405) IV ONE ×2 (12:15→16:45)
[2019-05-26] MEDS ORDERED: NS 2,000 ML IV ONE (12:15)
[2019-05-26 12:44] LABS: BASO # 0.1 10^3/uL (0.0-0.2); BASO % 0.5 % (0.0-1.0); EOS # 0.2 10^3/uL (0.0-0.5); EOS % 1.4 % (0.0-3.0); HEMATOCRIT 37.1 % (42.0-52.0); HEMOGLOBIN 12.7 g/dl (13.5-17.5); LYMPH # 2.1 10^3/uL (1.5-5.0); LYMPH % 19.5 % (24.0-44.0); MEAN CORPUSCULAR HEMOGLOBIN 29.5 pg (27.0-33.0); MEAN CORPUSCULAR HGB CONC 34.2 g/dl (32.0-36.5); MEAN CORPUSCULAR VOLUME 86.3 fl (80.0-96.0); MONO # 0.8 10^3/uL (0.0-0.8); MONO % 7.7 % (0.0-5.0); NEUTROPHILS # 7.6 10^3/uL (1.5-8.5); NEUTROPHILS % 70.5 % (36.0-66.0); PLATELET COUNT, AUTOMATED 302 10^3/uL (150-450); WHITE BLOOD COUNT 10.8 10^3/uL (4.0-10.0)
[2019-05-26 13:12] LABS: ACETONE/KETONE 5.44 MG/DL (<2.81); ALBUMIN 3.5 GM/DL (3.2-5.2); BILIRUBIN,DIRECT 0.1 MG/DL (0.0-0.2); BILIRUBIN,TOTAL 0.6 MG/DL (0.2-1.0); C REACTIVE PROTEIN QUANTITATIV 0.78 MG/DL (0.00-0.30); CREATININE FOR GFR 1.69 MG/DL (0.70-1.30); GLOMERULAR FILTRATION RATE 45.8 (>56); POTASSIUM SERUM 4.3 MEQ/L (3.5-5.1); TOTAL PROTEIN 6.7 GM/DL (6.4-8.2)
[2019-05-26 16:00] VITALS: BP 142/77
[2019-05-26 16:16] LABS: CALCIUM LEVEL 7.5 MG/DL (8.5-10.1); CREATININE FOR GFR 1.36 MG/DL (0.70-1.30); GLOMERULAR FILTRATION RATE 58.8 (>56)
[2019-05-26] MEDS ORDERED: ZOFR4TAB16 PO (16:33)
== END 2019-05-26 16:45 | disposition home or self-care (01) ==
LOC: M ED 11:35
DX: E10.40 Type 1 diabetes mellitus with diabetic neuropathy, unspecified (principal); E86.0 Dehydration; K52.9 Noninfective gastroenteritis and colitis, unspecified; B34.9 Viral infection, unspecified; I10 Essential (primary) hypertension; E78.9 Disorder of lipoprotein metabolism, unspecified; Z79.899 Other long term (current) drug therapy; Z79.4 Long term (current) use of insulin; Z88.8 Allergy status to other drugs, medicaments and biological substances
CPT/HCPCS: 80048; 80076; 81002; 82010; 82150; 82948; 83605; 83690; 85025; 86140; 87507; 96361; 96374; 96376; 99284; G0463; J2405

== ENCOUNTER 2019-06-11 10:36 | Inpatient (IN) | payer MEDICARE ==
[~2019-06-11] VITALS: Ht 167.6 cm; Wt 70.5 kg
[~2019-06-11 10:36] MED LIST changes: +NOVOINJ SC; +ZOFR4TAB16 PO
[2019-06-11] MEDS ORDERED: ONDA4TAB5 PO (10:44)
[2019-06-11] MEDS ORDERED: NS 1,000 ML IV ONE ×2 (11:00→13:00)
[2019-06-11] MEDS ORDERED: ONDANSETRON 4MG/2ML VIAL (J2405) IV ONE ×2 (11:00→11:15)
[2019-06-11 11:15] LABS: VENOUS BASE EXCESS -8.2 (-2.0-2.0); VENOUS HCO3 18.9 MEQ/L (23.0-27.0); VENOUS O2 SATURATION 63.5 % (60.0-80.0); VENOUS PARTIAL PRESSURE CO2 44.9 mmHg (38.0-50.0); VENOUS PARTIAL PRESSURE O2 35.5 mmHg (30.0-50.0); VENOUS PH 7.243 UNITS (7.330-7.430); VENOUS STANDARD HCO3 17.3 MEQ/L; VENOUS TOTAL CO2 20.3 MEQ/L (24.0-28.0)
[2019-06-11] MEDS ORDERED: MORPHINE 4 MG/ML 1ML VIAL/SYRINGE (J2270) IV ONE (11:15)
[2019-06-11 11:35] LABS: BASO % 0.3 % (0.0-1.0); EOS % 0.1 % (0.0-3.0); HEMATOCRIT 35.1 % (42.0-52.0); HEMOGLOBIN 11.7 g/dl (13.5-17.5); LYMPH # 1.1 10^3/uL (1.5-5.0); LYMPH % 8.9 % (24.0-44.0); MEAN CORPUSCULAR HEMOGLOBIN 30.2 pg (27.0-33.0); MEAN CORPUSCULAR HGB CONC 33.3 g/dl (32.0-36.5); MEAN CORPUSCULAR VOLUME 90.5 fl (80.0-96.0); MONO # 0.9 10^3/uL (0.0-0.8); MONO % 6.9 % (0.0-5.0); NEUTROPHILS # 10.5 10^3/uL (1.5-8.5); NEUTROPHILS % 82.9 % (36.0-66.0); PLATELET COUNT, AUTOMATED 329 10^3/uL (150-450); RED BLOOD COUNT 3.88 10^6/uL (4.30-6.10); WHITE BLOOD COUNT 12.7 10^3/uL (4.0-10.0)
[2019-06-11] MEDS ORDERED: INSULIN HUMAN REGULAR 100 UNITS in NS 99 ML IV SCH ×2 (11:45→13:30)
[2019-06-11] MEDS ORDERED: INSULIN IV RATE CHANGE DOCUMENTATION ML/HR XX SCH ×2 (11:45→14:00)
[2019-06-11 11:48] LABS: ALBUMIN 3.1 GM/DL (3.2-5.2); ALT/SGPT 41 U/L (12-78); BILIRUBIN,DIRECT < 0.1 MG/DL (0.0-0.2); BILIRUBIN,TOTAL 0.5 MG/DL (0.2-1.0); LIPASE 96 U/L (73-393); TOTAL PROTEIN 6.2 GM/DL (6.4-8.2)
[2019-06-11 12:42] LABS: ACETONE/KETONE > 46.00 MG/DL (<2.81); BLOOD UREA NITROGEN 35 MG/DL (7-18); CARBON DIOXIDE LEVEL 20 MEQ/L (21-32); CHLORIDE LEVEL 100 MEQ/L (98-107); CREATININE FOR GFR 2.17 MG/DL (0.70-1.30); GLOMERULAR FILTRATION RATE 34.3 (>56); GLUCOSE, FASTING 458 MG/DL (70-100); POTASSIUM SERUM 5.8 MEQ/L (3.5-5.1); SODIUM LEVEL 136 MEQ/L (136-145)
--- NOTE | 2019-06-11 13:11 | REP ---
Portable chest x-ray: Single view. History: Diabetic ketoacidosis. Findings: The lungs are symmetrically aerated and clear. Pleural angles are sharp. Heart is not enlarged. Pulmonary vasculature is not increased. No bony abnormality is seen. Impression: No active disease. Electronically Signed by Romie Jarrell MD 06/11/2019 01:02 P
[2019-06-11] MEDS ORDERED: NS 1,000 ML IV SCH (13:46)
[2019-06-11] MEDS ORDERED: cefTRIAXone SOD 1 GM in D5W MINI-BAG PLUS 50 ML IV SCH (14:00)
[2019-06-11] MEDS ORDERED: ACETAMINOPHEN TAB 650MG DOSE (2X325MG) PO PRN (14:00)
--- NOTE | 2019-06-11 14:20 | HPEPDOC ---
General Date of Admission Jun 11, 2019 at 13:52 Date of Service: Jun 11, 2019 Primary Care Physician: SHEYLA TORRES MD Chief Complaint The patient is a 49-year-old male admitted with a reason for visit of DKA. Source: Patient Exam Limitations: No limitations Timing/Duration: Other Severity: Moderate Associated Symptoms: Nausea, Vomiting History of Present Illness This is a 49 years old white male with past medical history of diabetes mellitus, diabetic neuropathy, hypertension, gallop nausea and vomiting since yesterday and also had some epigastric pain and he does have a blood sugar monitor implant on his abdomen in which was reading very high and he decided come to ER for further care. Patient denies any chest pain, dizziness, palpitation, etc. Home Medications Scheduled Amitriptyline HCl (Amitriptyline HCl) 75 Mg Tab, 75 MG PO QHS, (Reported) Benazepril HCl (Benazepril HCl) 5 Mg Tab, 5 MG PO DAILY, (Reported) Insulin Aspart (Novolog) 100 Unit/1 Ml Cartridge, 1 DOSE SC AC, (Reported) PER SLIDING SCALE Insulin Glargine,Hum.rec.anlog (Toujeo Solostar) 300 Unit/1 Ml Insuln.pen, 32 UNIT SC DAILY, (Reported) Scheduled PRN Ondansetron HCl (Ondansetron HCl) 4 Mg Tablet, 4 MG PO Q6H PRN for NAUSEA OR VOMITING, (Reported) Allergies Coded Allergies: gabapentin (Verified Allergy, Mild, SWELLING, 05/26/19) Past Medical History Medical History Diabetes mellitus, diabetic neuropathy and hypertension Surgical History Past surgical history of laparoscopic cholecystectomy and hernia repair Social History * Smoker: Denies Alcohol: Denies Drugs: denies A-FIB/CHADSVASC A-FIB History Current/History of A-Fib/PAF?: No Review of Systems Constitutional: Denies: Chills, Fever, Malaise, Night Sweats, Weakness, Fatigue, Weight Loss, Lethargy, Other Eyes: Denies: Pain, Vision change, Conjunctivae inflammation, Eyelid inflammation, Redness, Other ENT: Denies: Head Aches, Ear Pain, Dysphagia, Sinus Congestion, Post Nasal Drip, Sore Throat, Epistaxis, Other Symptoms Skin: Denies: Rash, Lesions, Jaundice, Bruising, Itching, Dry, Breakdown, Nail Changes, Other Cardiovascular: Denies: Chest Pain, Palpitations, Orthopnea, Paroxysmal Noc. Dyspnea, Edema, Lt Headedness, Other Symptoms Gastrointestinal: Reports: Nausea, Vomiting Hematologic: Denies: Bruising, Bleeding Excessively, Petecchia, Purpura, Enlarged Lymph Nodes, Other Hematologic Musculoskeletal: Denies: Neck Pain, Back Pain, Shoulder Pain, Arm Pain, Hand Pain, Leg Pain, Foot Pain, Joint Pain, Muscle Pain, Spasms, Other Symptoms Neurological: Denies: Weakness, Numbness, Incoordination, Change in speech, Confusion, Seizures, Other Symptoms Psych: Denies: Mood Normal, Anxiety, Depression, Memory Issues, Thoughts of Self Harm, Anger, Thoughts of Harming Other, Other Psych Physical Examination General Exam: Positive: Alert, Cooperative Eye Exam: Positive: PERRLA, Conjunctiva & lids normal ENT Exam: Positive: Mucous membr. moist/pink Neck Exam: Positive: Supple, JVD Chest Exam: Positive: Clear to auscultation, Normal air movement Heart Exam: Positive: Rate Normal, Normal S1, Normal S2 Abdomen Exam: Positive: Normal bowel sounds, Soft Extremity Exam: Positive: Normal pulses Skin Exam: Positive: Nl turgor and temperature Neuro Exam: Positive: Strength at 5/5 X4 ext, Sensation Intact Psych Exam: Positive: Mental status NL, Memory Intact, Oriented x 3 Vital Signs Vital Signs Date Time Temp Pulse Resp B/P (MAP) Pulse Ox O2 Delivery O2 Flow Rate FiO2 06/11/19 11:47 17 06/11/19 11:17 06/11/19 10:51 97.9 88 100 06/11/19 10:36 Room Air Laboratory Data Labs 24H Laboratory Tests 2 06/11/19 10:49: Bedside Glucose (Misc Panel) 561*H 06/11/19 11:05: Immature Granulocyte % (Auto) 0.9, Neutrophils (%) (Auto) 82.9H, Lymphocytes (%) (Auto) 8.9L, Monocytes (%) (Auto) 6.9H, Eosinophils (%) (Auto) 0.1, Basophils (%) (Auto) 0.3, Neutrophils # (Auto) 10.5H, Lymphocytes # (Auto) 1.1L, Monocytes # (Auto) 0.9H, Eosinophils # (Auto) 0.0, Basophils # (Auto) 0.0, Nucleated Red Blood Cells % (auto) 0.0, Blood Gas Bicarbonate Standard 17.3, Venous Blood pH 7.243L, Venous Blood Partial Pressure CO2 44.9, Venous Blood Partial Pressure O2 35.5, Venous Blood Total Carbon Dioxide 20.3L, Venous Blood HCO3 18.9L, Venous Blood Oxygen Saturation 63.5, Venous Blood Base Excess -8.2L, Anion Gap 16, Glomerular Filtration Rate 34.3L, Calcium Level 9.0, Total Bilirubin 0.5, Direct Bilirubin < 0.1, Aspartate Amino Transf (AST/SGOT) 15, Alanine Aminotransferase (ALT/SGPT) 41, Alkaline Phosphatase 171H, Total Protein 6.2L, Albumin 3.1L, Albumin/Globulin Ratio 1.00, Lipase 96, B-Hydroxybutyrate > 46.00H 06/11/19 11:11: POC Lactate (Misc Panel) 4.39*H 06/11/19 11:16: POC Glucose (Misc Panel) 527*H, POC Sodium (Misc Panel) 133L, POC Potassium (Misc Panel) 7.4*H, POC Chloride (Misc Panel) 101, POC Total CO2 (Misc Panel) 22.0L, POC Blood Urea Nitrogen (Misc Panel 55H, POC Ionized Calcium (Misc Panel) 4.8, POC Creatinine (Misc Panel) 1.8H, POC Hematocrit (Misc Panel) 36.0L 06/11/19 13:25: Bedside Glucose (Misc Panel) 306H CBC/BMP Laboratory Tests 06/11/19 11:05 Problems (1) DKA (diabetic ketoacidoses) Status: Acute Problem Text: 49 years old white male with past medical history of diabetes mellitus on insulin, hypertension, diabetic neuropathy. He is compliant to his meds, had developed nausea, vomiting and epigastric pain since yesterday. Progressively, his blood sugar got worse as he monitors on his implanted blood sugar readings are and he decided come to ER, but he is been diagnosed with DKA. Patient's previous episode of DKA was in 2017. Admit patient to ICU IV fluids normal saline 150 mL per hour Insulin drip as per orders Pantoprazole 40 mg IV every 24 hours Will monitor his magnesium, phosphate and BMP every 4 hourly and supplemented as needed Serum osmolality will also be monitored every 6 hours Continue all home meds Clear liquid diet DVT prophylaxis with Lovenox (2) Leukocytosis Status: Acute Problem Text: Etiology. So far no chest x-ray is negative. CBC shows slightly elevated leukocytosis but no source of infection. Will start patient on Rocephin 1 g IV every 24 hours Blood cultures and urine cultures have been ordered Will order CT of the abdomen and pelvis with by mouth an to rule out etiology of any abdominal pathology Zofran when necessary (3) HTN (hypertension) Status: Chronic Problem Text: Continue home meds Plan / VTE VTE Prophylaxis Ordered?: Yes INEZ OQUENDO MD Jun 11, 2019 14:20
[2019-06-11] MEDS: INSULIN IV RATE CHANGE DOCUMENTATION ML/HR XX SCH ×3 (15:59→20:42)
[2019-06-11] MEDS: ONDANSETRON 4MG/2ML VIAL (J2405) IV SCH ×2 (16:01→23:00)
[2019-06-11 17:11] VITALS: BP 138/67
[2019-06-11] MEDS ORDERED: D5W/0.45% SODIUM CHLORIDE 1,000 ML IV ONE (17:15)
[2019-06-11 17:55] LABS: CALCIUM LEVEL 8.7 MG/DL (8.5-10.1); CREATININE FOR GFR 1.73 MG/DL (0.70-1.30); GLOMERULAR FILTRATION RATE 44.6 (>56); MAGNESIUM LEVEL 2.1 MG/DL (1.8-2.4); PHOSPHORUS LEVEL 2.3 MG/DL (2.5-4.9); POTASSIUM SERUM 3.9 MEQ/L (3.5-5.1)
[2019-06-11] MEDS: GASTROGRAFIN SOLUTION 30ML PO SCH ×2 (18:18→18:46)
[2019-06-11] MEDS: KCL 40MEQ IN D5/0.45NS 1000ML 1,000 ML IV SCH (18:37)
[2019-06-11] MEDS ORDERED: MORPHINE 4 MG/ML 1ML VIAL/SYRINGE (J2270) IV PRN (19:00)
--- NOTE | 2019-06-11 19:20 | REPVR ---
PROCEDURE INFORMATION: Exam: US Abdomen Limited, Right Upper Quadrant Exam date and time: 06/11/2019 6:48 PM Clinical history: 49 years old, male; Abdominal pain; Generalized; Prior surgery; Surgery date: 6+ months; Surgery type: Cholecystectomy; Additional info: Abdominal pain, dka TECHNIQUE: Imaging protocol: Real-time ultrasound of the abdomen with image documentation. Examination was focused on the right upper quadrant. COMPARISON: LIVER US 07/28/2018 7:37 AM FINDINGS: Liver: Normal. No masses. Gallbladder: There has been a cholecystectomy. Common bile duct: The common bile duct measures 3.7 mm. No mass or choledocholithiasis. Pancreas: Pancreatic tail obscured by overlying bowel gas. Pancreas otherwise unremarkable. Right kidney: Right kidney measures 9.7 x 5.6 x 3.9 cm. Several apparent non-shadowing calcifications demonstrated in the region of the renal medulla. Findings may represent numerous small nonobstructive calculi. Findings can be seen in association with medullary sponge kidney. IMPRESSION: 1. There has been a cholecystectomy. 2. Right kidney measures 9.7 x 5.6 x 3.9 cm. Several apparent non-shadowing calcifications demonstrated in the region of the renal medulla. Findings may represent numerous small nonobstructive calculi. Findings can be seen in association with medullary sponge kidney. Electronically signed by: Dhruv Lipscomb On 06/11/2019 19:19:27 PM
[2019-06-11 20:00] VITALS: BP 115/59
[2019-06-11] MEDS ORDERED: AMITRIPTYLINE 25 MG TAB PO SCH (21:00)
[2019-06-11] MEDS ORDERED: ENOXAPARIN 40 MG/0.4 ML SYRINGE (J1650) SC SCH (21:00)
[2019-06-11 23:38] LABS: CALCIUM LEVEL 8.2 MG/DL (8.5-10.1); CREATININE FOR GFR 1.57 MG/DL (0.70-1.30); GLOMERULAR FILTRATION RATE 49.8 (>56); MAGNESIUM LEVEL 2.2 MG/DL (1.8-2.4); PHOSPHORUS LEVEL 3.6 MG/DL (2.5-4.9); POTASSIUM SERUM 4.9 MEQ/L (3.5-5.1)
[2019-06-12] VITALS: BP 114/59
[2019-06-12] MEDS: INSULIN IV RATE CHANGE DOCUMENTATION ML/HR XX SCH ×7 (00:09→07:15)
[2019-06-12] MEDS: KCL 40MEQ IN D5/0.45NS 1000ML 1,000 ML IV SCH ×2 (02:30→08:06)
[2019-06-12 02:47] LABS: CALCIUM LEVEL 7.7 MG/DL (8.5-10.1); CREATININE FOR GFR 1.45 MG/DL (0.70-1.30); GLOMERULAR FILTRATION RATE 54.6 (>56); PHOSPHORUS LEVEL 2.9 MG/DL (2.5-4.9); POTASSIUM SERUM 4.3 MEQ/L (3.5-5.1)
[2019-06-12 04:00] VITALS: BP 123/70
[2019-06-12] MEDS: ONDANSETRON 4MG/2ML VIAL (J2405) IV SCH (05:24)
--- NOTE | 2019-06-12 07:53 | ECGEPIP ---
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
[2019-06-12 08:01] VITALS: BP 143/76
[2019-06-12 08:59] LABS: CALCIUM LEVEL 8.2 MG/DL (8.5-10.1); CREATININE FOR GFR 1.44 MG/DL (0.70-1.30); GLOMERULAR FILTRATION RATE 55.1 (>56); MAGNESIUM LEVEL 2.1 MG/DL (1.8-2.4); PHOSPHORUS LEVEL 2.5 MG/DL (2.5-4.9); POTASSIUM SERUM 4.7 MEQ/L (3.5-5.1)
[2019-06-12] MEDS ORDERED: BENAZEPRIL 5 MG TAB PO SCH (09:00)
[2019-06-12 10:25] LABS: ACETONE/KETONE 9.08 MG/DL (<2.81)
[2019-06-12] MEDS ORDERED: CEFD1CAP8 PO (11:21)
--- NOTE | 2019-06-12 13:52 | DS.PDOC ---
Discharge Summary General Date of Admission Jun 11, 2019 at 13:52 Date of Discharge 06/12/19 Discharge Summary PROCEDURES PERFORMED DURING STAY: None. ADMITTING DIAGNOSES: 1. DKA, abdominal pain. DISCHARGE DIAGNOSES: 1. DKA, epigastric pain. COMPLICATIONS/CHIEF COMPLAINT: DKA. HISTORY OF PRESENT ILLNESS: This is a 49 years old white male with past medical history of diabetes mellitus, diabetic neuropathy, hypertension, gallop nausea and vomiting since yesterday and also had some epigastric pain and he does have a blood sugar monitor implant on his abdomen in which was reading very high and he decided come to ER for further care. Patient denies any chest pain, dizziness, palpitation, etc.. HOSPITAL COURSE: [Patient was admitted to ICU for intensive care. Patient was started on insulin infusion as well as IV fluids and potassium, magnesium, phosphorus supplemented. Overnight, patient responded very well. His gap has closed her blood sugars under 150. He is been started on his regular long-acting insulin. His abdominal pain is completely resolved. He is in usual state of health and will be discharged home on his current regimen. Patient was started on Rocephin as empiric antibiotics and will continue with cephalosporin for one week by mouth for questionable UTI even though we don't have UA back on him at the time of discharge, but he will follow with his PCP for UA. Follow-up DISCHARGE MEDICATIONS: Please see below. ALLERGIES: Please see below. PHYSICAL EXAMINATION ON DISCHARGE: VITAL SIGNS: Please see below. GENERAL: Within normal limits HEENT: PERRLA. Extraocular muscles intact NECK: Supple CARDIOVASCULAR EXAMINATION: S1, S2, regular RESPIRATORY EXAMINATION: Clear to A&P ABDOMINAL EXAMINATION: Benign EXTREMITIES: No clubbing, cyanosis edema SKIN: Within normal limits NEUROLOGICAL EXAMINATION: . No focal motor sensory deficit PSYCHIATRIC EXAMINATION: Normal LABORATORY DATA: Please see below. IMAGING: Abdominal sonogram, within normal limits PROGNOSIS: Good ACTIVITY: As tolerated. DIET: Carbohydrate consistent diet DISCHARGE PLAN: Follow with PCP in one week DISPOSITION: 01 Home, Self-Care. DISCHARGE INSTRUCTIONS: 1. As per discharge instructions. ITEMS TO FOLLOWUP ON ON OUTPATIENT: 1. Follow with PCP in one week. DISCHARGE CONDITION: Stable. TIME SPENT ON DISCHARGE: 38 minutes. Vital Signs/I&Os Vital Signs Date Time Temp Pulse Resp B/P (MAP) Pulse Ox O2 Delivery O2 Flow Rate FiO2 06/12/19 08:01 97.8 79 18 143/76 (98) 98 Room Air I&O- Last 24 Hours up to 6 AM 06/12/19 05:59 Intake Total 3878 ml Output Total 300 ml Balance 3578 ml Laboratory Data Labs 24H Laboratory Tests 2 06/11/19 17:06: Anion Gap 6L, Glomerular Filtration Rate 44.6L, Lactic Acid Level 2.8*H, Calcium Level 8.7, Phosphorus Level 2.3L, Magnesium Level 2.1 06/11/19 22:55: Anion Gap 6L, Glomerular Filtration Rate 49.8L, Calcium Level 8.2L, Phosphorus Level 3.6#, Magnesium Level 2.2, Osmolality 304H, Lipase 204 06/12/19 01:57: Anion Gap 6L, Glomerular Filtration Rate 54.6L, Calcium Level 7.7L, Phosphorus Level 2.9 06/12/19 07:53: Anion Gap 5L, Glomerular Filtration Rate 55.1L, Calcium Level 8.2L, Phosphorus Level 2.5, Magnesium Level 2.1, Osmolality 302H, B-Hydroxybutyrate 9.08H CBC/BMP Laboratory Tests 06/11/19 17:06 06/11/19 22:55 06/12/19 01:57 06/12/19 07:53 Microbiology Microbiology 06/11/19 Blood Culture, Received Pending Discharge Medications Scheduled Amitriptyline HCl (Amitriptyline HCl) 75 Mg Tab, 75 MG PO QHS, (Reported) Benazepril HCl (Benazepril HCl) 5 Mg Tab, 5 MG PO DAILY, (Reported) Cefdinir (Cefdinir) 300 Mg Capsule, 1 CAP PO BID Insulin Aspart (Novolog) 100 Unit/1 Ml Cartridge, 1 DOSE SC AC, (Reported) PER SLIDING SCALE Insulin Glargine,Hum.rec.anlog (Toujeo Solostar) 300 Unit/1 Ml Insuln.pen, 32 UNIT SC DAILY, (Reported) Scheduled PRN Ondansetron HCl (Ondansetron HCl) 4 Mg Tablet, 4 MG PO Q6H PRN for NAUSEA OR VOMITING, (Reported) Allergies Coded Allergies: gabapentin (Verified Allergy, Mild, SWELLING, 05/26/19) INEZ OQUENDO MD Jun 12, 2019 13:52
== END 2019-06-12 12:10 | disposition home or self-care (01) | DRG 638 ==
LOC: M ED 10:36 → M ED INP 13:52 → M ICU 16:48
PROVIDERS: ADMIT Internal Medicine; ATTEND Internal Medicine
DX: E11.10 Type 2 diabetes mellitus with ketoacidosis without coma (principal); N39.0 Urinary tract infection, site not specified; E11.40 Type 2 diabetes mellitus with diabetic neuropathy, unspecified; I10 Essential (primary) hypertension; D72.829 Elevated white blood cell count, unspecified; Z96.41 Presence of insulin pump (external) (internal); Z79.4 Long term (current) use of insulin; Z79.899 Other long term (current) drug therapy; Z88.8 Allergy status to other drugs, medicaments and biological substances; Z90.49 Acquired absence of other specified parts of digestive tract

== ENCOUNTER → 2019-08-27 | Outpatient (REF) | payer OTHER ==
[~2019-08-27] MED LIST changes: +CEFD1CAP8 PO; +ONDA-83 PO
[2019-08-27 12:48] LABS: BASO # 0.1 10^3/uL (0.0-0.2); BASO % 0.9 % (0.0-1.0); EOS # 0.6 10^3/uL (0.0-0.5); EOS % 7.2 % (0.0-3.0); HEMOGLOBIN 11.7 g/dl (13.5-17.5); LYMPH # 2.4 10^3/uL (1.5-5.0); LYMPH % 28.3 % (24.0-44.0); MEAN CORPUSCULAR HEMOGLOBIN 29.1 pg (27.0-33.0); MEAN CORPUSCULAR HGB CONC 32.5 g/dl (32.0-36.5); MEAN CORPUSCULAR VOLUME 89.6 fl (80.0-96.0); MONO # 0.8 10^3/uL (0.0-0.8); MONO % 9.6 % (0.0-5.0); NEUTROPHILS # 4.6 10^3/uL (1.5-8.5); NEUTROPHILS % 53.6 % (36.0-66.0); PLATELET COUNT, AUTOMATED 278 10^3/uL (150-450); RED BLOOD COUNT 4.02 10^6/uL (4.30-6.10); WHITE BLOOD COUNT 8.5 10^3/uL (4.0-10.0)
[2019-08-27 12:58] LABS: ALBUMIN 3.4 GM/DL (3.2-5.2); BILIRUBIN,TOTAL 0.4 MG/DL (0.2-1.0); CALCIUM LEVEL 8.7 MG/DL (8.5-10.1); CHOLESTEROL RISK RATIO 2.862 (<5); CREATININE FOR GFR 1.48 MG/DL (0.70-1.30); GLOMERULAR FILTRATION RATE 53.3 (>56); POTASSIUM SERUM 3.9 MEQ/L (3.5-5.1); THYROID STIMULATING HORMONE 4.98 uIU/ML (0.358-3.740); TOTAL PROTEIN 6.3 GM/DL (6.4-8.2)
[2019-08-27 13:00] LABS: HEMOGLOBIN A1c 9.6 %
[2019-08-27 13:13] LABS: CREATININE, URINE 95.2 MG/DL; MALB URINE SIEMENS 22.9 MG/L
== END ==
LOC: M SFHCLERA 07:40
PROVIDERS: ATTEND Family Medicine
DX: E10.8 Type 1 diabetes mellitus with unspecified complications (principal)

== ENCOUNTER → 2019-08-31 | Outpatient (REF) | payer OTHER ==
[2019-08-31 12:55] LABS: FREE T4 0.95 NG/DL (0.76-1.46); THYROID STIMULATING HORMONE 3.76 uIU/ML (0.358-3.740)
== END ==
LOC: M SFHCLERA 08:11
PROVIDERS: ATTEND Family Medicine
DX: R79.89 Other specified abnormal findings of blood chemistry (principal); E07.9 Disorder of thyroid, unspecified

== ENCOUNTER 2019-09-12 08:58 | Emergency (ER) | payer OTHER ==
[~2019-09-12] VITALS: Ht 165.1 cm; Wt 66.7 kg
[2019-09-12] MEDS ORDERED: ATOR40TA75 (10:00)
[2019-09-12 10:14] LABS: BASO # 0.1 10^3/uL (0.0-0.2); BASO % 0.5 % (0.0-1.0); EOS # 0.1 10^3/uL (0.0-0.5); EOS % 0.5 % (0.0-3.0); LYMPH # 1.2 10^3/uL (1.5-5.0); LYMPH % 10.5 % (24.0-44.0); MEAN CORPUSCULAR HEMOGLOBIN 29.6 pg (27.0-33.0); MEAN CORPUSCULAR HGB CONC 33.3 g/dl (32.0-36.5); MEAN CORPUSCULAR VOLUME 88.7 fl (80.0-96.0); MONO # 0.5 10^3/uL (0.0-0.8); MONO % 4.6 % (0.0-5.0); NEUTROPHILS # 9.4 10^3/uL (1.5-8.5); NEUTROPHILS % 83.4 % (36.0-66.0); PLATELET COUNT, AUTOMATED 310 10^3/uL (150-450); RED BLOOD COUNT 4.06 10^6/uL (4.30-6.10); WHITE BLOOD COUNT 11.3 10^3/uL (4.0-10.0)
[2019-09-12] MEDS ORDERED: NS 1,000 ML IV ONE ×2 (10:15→13:00)
[2019-09-12 10:50] LABS: ALBUMIN 3.6 GM/DL (3.2-5.2); ALT/SGPT 40 U/L (12-78); BILIRUBIN,DIRECT 0.1 MG/DL (0.0-0.2); BILIRUBIN,TOTAL 0.6 MG/DL (0.2-1.0); CK-MB VALUE MASS 1.6 NG/ML (<3.6); CPK CREATINE PHOSPHOKINASE 84 U/L (39-308); LIPASE 99 U/L (73-393); TOTAL PROTEIN 6.5 GM/DL (6.4-8.2); TROPONIN I < 0.02 NG/ML (< 0.10)
[2019-09-12 13:05] LABS: VENOUS BASE EXCESS -2.8 (-2.0-2.0); VENOUS HCO3 23.8 MEQ/L (23.0-27.0); VENOUS O2 SATURATION 60.5 % (60.0-80.0); VENOUS PARTIAL PRESSURE CO2 48.7 mmHg (38.0-50.0); VENOUS PARTIAL PRESSURE O2 30.4 mmHg (30.0-50.0); VENOUS PH 7.306 UNITS (7.330-7.430); VENOUS STANDARD HCO3 21.5 MEQ/L; VENOUS TOTAL CO2 25.2 MEQ/L (24.0-28.0)
[2019-09-12 13:13] LABS: HEMOGLOBIN A1c 9.5 %
[2019-09-12 13:31] LABS: ACETONE/KETONE 18.53 MG/DL (<2.81)
--- NOTE | 2019-09-12 14:38 | REP ---
Portable chest x-ray: Single view. History: Diabetic ketoacidosis. Comparison chest x-ray: June 11, 2019. Findings: EKG monitoring electrodes overlie the chest. The lungs are well inflated and clear. Heart is not enlarged. Pulmonary vasculature is not increased. No bony abnormality. Impression: Negative portable chest x-ray. Electronically Signed by Romie Jarrell MD 09/12/2019 04:09 P
[2019-09-12 15:00] VITALS: BP 135/4
--- NOTE | 2019-09-12 20:17 | ECGEPIP ---
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
== END 2019-09-12 15:00 | disposition home or self-care (01) ==
LOC: M ED 08:58
DX: E11.42 Type 2 diabetes mellitus with diabetic polyneuropathy (principal); I10 Essential (primary) hypertension; Z79.899 Other long term (current) drug therapy; Z79.4 Long term (current) use of insulin; Z88.8 Allergy status to other drugs, medicaments and biological substances

== ENCOUNTER → 2020-01-31 | Outpatient (REF) | payer OTHER ==
[~2020-01-31] MED LIST changes: +ATOR40TA75
[2020-02-19 14:09] LABS: CALPROTECTIN STOOL 34 ug/g (0-120); FATS NEUTRAL Normal (.); FATS TOTAL Normal (.); PANCREATIC ELASTASE STOOL 216 (>200)
== END ==
LOC: M LAB REF 09:55
PROVIDERS: ATTEND Internal Medicine Gastroenterology
DX: R19.7 Diarrhea, unspecified (principal)

== ENCOUNTER → 2020-02-01 | Outpatient (CLI) | payer OTHER ==
[2020-02-06 17:07] LABS: CHROMOGRANIN A 126.7 ng/mL (0.0-101.8); VASOACTIVE INTESTINAL PEPTIDE 29.5 pg/mL (0.0-58.8)
== END ==
LOC: M LAB 08:15
PROVIDERS: ATTEND Internal Medicine Gastroenterology
DX: R19.7 Diarrhea, unspecified (principal)

== ENCOUNTER → 2020-02-12 | Outpatient (CLI) | payer OTHER ==
[~2020-02-12] MED LIST changes: +CEFT1INJ5 IV; +INSULIN DRIP IV; +ISOVUE-370 76% 100ML VIAL As Ordered ONE; +[UNRECOGNIZED DRUG - CODE] IV; +[UNRECOGNIZED DRUG - CODE] IV; +[UNRECOGNIZED DRUG - CODE] IV
--- NOTE | 2020-02-13 01:04 | REP ---
REASON: Followup 4 mm sized nodule in the right upper lobe on the prior CT scan of the chest of 01/02/2019, which was reviewed. CONTRAST: 100 mL Isovue-370. The mediastinum and pulmonary jossy are unchanged. There is no mass or adenopathy. There are no pleural or pericardial effusions. Imaged upper abdomen and imaged osseous structures are unchanged and again seen to be within normal limits. Evaluation of the lung ghotra shows the 4 mm sized right upper lobe nodule to be stable. In addition, there are two nodular densities in the major fissure on the left in the mid lung field. These are also unchanged. There is a 4 mm sized nodule seen in the left lower lobe, which is also stable. There are no new abnormal nodules, masses, or opacities. IMPRESSION: Stable CT findings, as described above. Lung-RADS category [address] screening is recommended provided the patient's risk factors remain high. This is according to the revised Fleischner Society criteria. Electronically Signed by David Belcher DO 02/13/2020 12:38 P
== END ==
LOC: M RAD 14:00
PROVIDERS: ATTEND Family Medicine
DX: R91.1 Solitary pulmonary nodule (principal)
CPT/HCPCS: 71260; Q9967

== ENCOUNTER → 2020-04-27 | Outpatient (CLI) | payer OTHER ==
[~2020-04-27] MED LIST changes: -ISOVUE-370 76% 100ML VIAL As Ordered ONE
== END ==
LOC: M LABSMTC 08:57
PROVIDERS: ATTEND Anesthesiology
DX: Z01.812 Encounter for preprocedural laboratory examination (principal); Z20.828 Contact with and (suspected) exposure to other viral communicable diseases

== ENCOUNTER 2020-04-29 17:28 | Inpatient (IN) | payer OTHER, MEDICARE ==
[~2020-04-29] VITALS: Ht 165.1 cm; Wt 68.9 kg
[~2020-04-29 17:28] MED LIST changes: -CEFT1INJ5 IV; -INSULIN DRIP IV; -[UNRECOGNIZED DRUG - CODE] IV; -[UNRECOGNIZED DRUG - CODE] IV; -[UNRECOGNIZED DRUG - CODE] IV
[2020-04-29 20:15] VITALS: BP 132/63
[2020-04-29 20:30] VITALS: BP 120/63
[2020-04-29] MEDS ORDERED: INSULIN REGULAR IN 0.9 % NACL 100 UNIT in IV 1 EA IV SCH ×2 (20:37)
[2020-04-29] MEDS ORDERED: ACETAMINOPHEN TAB 650MG DOSE (2X325MG) PO PRN (20:45)
[2020-04-29] MEDS ORDERED: NS 1,000 ML IV SCH (20:45)
[2020-04-29] MEDS ORDERED: NS 1,000 ML IV ONE ×2 (20:45)
[2020-04-29] MEDS ORDERED: INSULIN DRIP IV (20:48)
[2020-04-29] MEDS ORDERED: [UNRECOGNIZED DRUG - CODE] IV (20:48)
[2020-04-29] MEDS ORDERED: [UNRECOGNIZED DRUG - CODE] IV (20:48)
[2020-04-29] MEDS ORDERED: [UNRECOGNIZED DRUG - CODE] IV (20:48)
[2020-04-29] MEDS ORDERED: CEFT1INJ5 IV (20:48)
[2020-04-29 21:00] VITALS: BP 123/60
--- NOTE | 2020-04-29 21:04 | HPEPDOC ---
General Date of Admission 04/29/20 Date of Service: Apr 29, 2020 Chief Complaint The patient is a 50-year-old male admitted with a reason for visit of DKA. Source: Patient Exam Limitations: No limitations Timing/Duration: 24 hours Severity: Severe Associated Symptoms: Malaise, Nausea, Weakness History of Present Illness Patient is 50 years old male with past medical history of type 1 diabetes, neuropathy, hyperlipidemia, chronic kidney diseases was transferred from [facility] with DKA. Patient stated that he was not able to receive his insulin from the pharmacy and he missed the dose. Patient stated that he developed nausea, vomiting, abdominal pain, polyuria. In the [facility] patient was found to have sodium of 153, potassium 6.9, VBG showed pH 7.1 bicarbonate 5.4, glucose level showed 1009, creatinine 2.7, anion gap 32. In the [facility] patient received fluid resuscitation, insulin drip and sodium bicarbonate Home Medications Scheduled Amitriptyline HCl (Amitriptyline HCl) 75 Mg Tab, 75 MG PO QHS, (Reported) Benazepril HCl (Benazepril HCl) 5 Mg Tab, 5 MG PO DAILY, (Reported) Insulin Aspart (Novolog) 100 Unit/1 Ml Cartridge, 1 DOSE SC AC PER SLIDING SCALE Insulin Glargine,Hum.rec.anlog (Toujeo Solostar) 300 Unit/1 Ml Insuln.pen, 36 UNIT SC DAILY Allergies Coded Allergies: gabapentin (Verified Allergy, Mild, SWELLING, 05/26/19) Past Medical History Medical History type 1 diabetes, neuropathy, hyperlipidemia, chronic kidney diseases Family History Mother had diabetes, one of his brother has diabetes type 2 Social History * Smoker: Denies Alcohol: Denies Drugs: denies A-FIB/CHADSVASC A-FIB History Current/History of A-Fib/PAF?: No Current PO Anticoag Therapy: No Review of Systems Constitutional: Reports: Fatigue; Denies: Chills Eyes: Denies: Pain, Vision change ENT: Denies: Head Aches Skin: Denies: Rash Pulmonary: Denies: Dyspnea, Cough Cardiovascular: Denies: Chest Pain Gastrointestinal: Reports: Nausea, Vomiting, Abdominal Pain Genitourinary: Denies: Hematuria Hematologic: Denies: Bruising Endocrine: Reports: Polydipsia Musculoskeletal: Denies: Neck Pain, Back Pain Neurological: Denies: Weakness Psych: Reports: Mood Normal Physical Examination General Exam: Positive: Cooperative, Other (slightly confused, did not know what day today) Eye Exam: Positive: PERRLA ENT Exam: Positive: Atraumatic Neck Exam: Positive: Supple; Negative: JVD Chest Exam: Positive: Clear to auscultation Heart Exam: Positive: Tachycardic Telemetry: Positive: Sinus Abdomen Exam: Positive: BS Hypoactive, Tenderness (in epigastric area) Extremity Exam: Negative: Clubbing, Cyanosis Skin Exam: Positive: Other skin issue (dry skin) Neuro Exam: Positive: Cranial Nerves 3-12 NL Psych Exam: Positive: Mental status NL Vital Signs hr 82 Assessment/Plan Patient is 50 years old male with past medical history of type 1 diabetes, neuropathy, hyperlipidemia, chronic kidney diseases was transferred from [facility] with DKA. Patient stated that he was not able to receive his insulin from the pharmacy and he missed the dose. Patient stated that he developed nausea, vomiting, abdominal pain, polyuria. In the [facility] patient was found to have sodium of 153, potassium 6.9, VBG showed pH 7.1 bicarbonate 5.4, glucose level showed 1009, creatinine 2.7, anion gap 32. In the [facility] patient received fluid resuscitation, insulin drip and sodium bicarbonate Problems (1) DKA (diabetic ketoacidoses) Status: Acute Problem Text: Aggressive IV hydration Insulin drip Will continue to monitor BMP, magnesium Glucose level every 1 hour Nothing by mouth for now Continue to monitor ABG Telemetry (2) Type 1 diabetes Status: Chronic Problem Text: Will check HbA1c (3) HTN (hypertension) Status: Chronic Problem Text: Continue home cardioprotective medications (4) Acute renal injury Status: Acute Problem Text: Secondary to dehydration IV fluid Continue to monitor (5) Dehydration Status: Acute Problem Text: Secondary to DKA IV volume expansion (6) Metabolic acidosis Status: Acute Problem Text: Secondary to DKA Will continue to monitor ABG See above Plan / VTE VTE Prophylaxis Ordered?: Yes PARAS HENDRIX DO Apr 29, 2020 21:04
[2020-04-29] MEDS ORDERED: ONDANSETRON 4MG/2ML VIAL IV PRN (21:45)
[2020-04-29] MEDS: AMITRIPTYLINE 25 MG TAB PO SCH (21:45)
[2020-04-29] MEDS: HEPARIN SOD (PORCINE) 5000UNITS/ML 1ML VIAL/SYRINGE SC SCH (21:46)
[2020-04-29 22:00] VITALS: BP 133/61
[2020-04-29 22:36] LABS: HEMATOCRIT 28.4 % (42.0-52.0); MEAN CORPUSCULAR HGB CONC 31.7 g/dl (32.0-36.5); MEAN CORPUSCULAR VOLUME 88.2 fl (80.0-96.0); PLATELET COUNT, AUTOMATED 334 10^3/uL (150-450); RED BLOOD COUNT 3.22 10^6/uL (4.30-6.10); WHITE BLOOD COUNT 19.6 10^3/uL (4.0-10.0)
[2020-04-29 22:58] LABS: HEMOGLOBIN A1c 8.4 %
[2020-04-29 23:00] VITALS: BP 111/59
[2020-04-29 23:29] LABS: ALBUMIN 2.9 GM/DL (3.2-5.2); BILIRUBIN,TOTAL 0.3 MG/DL (0.2-1.0); CALCIUM LEVEL 8.1 MG/DL (8.5-10.1); CREATININE FOR GFR 2.99 MG/DL (0.70-1.30); GLOMERULAR FILTRATION RATE 23.6 (>56); POTASSIUM SERUM 4.6 MEQ/L (3.5-5.1); TOTAL PROTEIN 5.5 GM/DL (6.4-8.2)
[2020-04-29] MEDS: INSULIN IV RATE CHANGE DOCUMENTATION ML/HR XX SCH (23:36)
[2020-04-30] VITALS (10 sets, daily range): BP systolic 104–140; BP diastolic 55–71
[2020-04-30] MEDS ORDERED: KCL 20MEQ in NS 1000ML 1,000 ML IV SCH
[2020-04-30] MEDS: INSULIN IV RATE CHANGE DOCUMENTATION ML/HR XX SCH ×5 (00:27→06:35)
[2020-04-30] MEDS ORDERED: D5W/0.9% SODIUM CHLORIDE 1,000 ML IV SCH (02:45)
[2020-04-30 05:30] LABS: ABG BASE EXCESS -6.9 (-2.0-2.0); ABG HCO3 18.1 MEQ/L (22.0-26.0); ABG O2 SATURATION 98.6 % (95.0-99.0); ABG PARTIAL PRESSURE O2 136.8 mmHg (75.0-100.0); ABG STANDARD HCO3 18.8 MEQ/L (22.0-26.0); ABG TOTAL CO2 19.1 MEQ/L (22.0-29.0); ABG pH (ARTERIAL) 7.344 UNITS (7.350-7.450)
[2020-04-30 05:31] LABS: ALBUMIN 2.6 GM/DL (3.2-5.2); BILIRUBIN,TOTAL 0.3 MG/DL (0.2-1.0); CALCIUM LEVEL 7.8 MG/DL (8.5-10.1); CREATININE FOR GFR 2.54 MG/DL (0.70-1.30); GLOMERULAR FILTRATION RATE 28.5 (>56); MAGNESIUM LEVEL 1.9 MG/DL (1.8-2.4); PHOSPHORUS LEVEL 2.5 MG/DL (2.5-4.9); POTASSIUM SERUM 4.2 MEQ/L (3.5-5.1); TOTAL PROTEIN 5.1 GM/DL (6.4-8.2)
[2020-04-30] MEDS: LEVEMIR (INSULIN DETEMIR) 1 UNITS/0.01ML SC SCH (06:03)
[2020-04-30] MEDS ORDERED: FLUBLOK(EGG FREE)(QUAD)INFLUENZA VACC 0.5ML SYRINGE 18YRS & OLDER IM SCH (06:15)
[2020-04-30] MEDS ORDERED: GLUCAGON INJ 1MG VIAL SC PRN (07:00)
[2020-04-30] MEDS ORDERED: DEXTROSE 50% 50 ML SYRINGE IV PRN (07:00)
[2020-04-30] MEDS ORDERED: GLUCOSE 4GM CHEW TABLET PO PRN (07:00)
[2020-04-30 08:02] LABS: HEMATOCRIT 27.1 % (42.0-52.0); HEMOGLOBIN 8.8 g/dl (13.5-17.5); MEAN CORPUSCULAR HEMOGLOBIN 27.8 pg (27.0-33.0); MEAN CORPUSCULAR HGB CONC 32.5 g/dl (32.0-36.5); MEAN CORPUSCULAR VOLUME 85.5 fl (80.0-96.0); PLATELET COUNT, AUTOMATED 333 10^3/uL (150-450); RED BLOOD COUNT 3.17 10^6/uL (4.30-6.10); WHITE BLOOD COUNT 17.8 10^3/uL (4.0-10.0)
[2020-04-30 08:34] LABS: CREATININE FOR GFR 2.5 MG/DL (0.70-1.30); POTASSIUM SERUM 4.5 MEQ/L (3.5-5.1)
[2020-04-30] MEDS: PANTOPRAZOLE 40MG VIAL (C9113 PER 1) IV SCH (09:05)
[2020-04-30] MEDS: HEPARIN SOD (PORCINE) 5000UNITS/ML 1ML VIAL/SYRINGE SC SCH ×2 (09:05→22:01)
[2020-04-30] MEDS: BENAZEPRIL 5 MG TAB PO SCH (09:05)
[2020-04-30] MEDS: HumaLOG INSULIN (NovoLOG) PER UNIT SC SCH ×3 (09:05→16:56)
[2020-04-30] MEDS: NS 0.45% 1,000 ML IV SCH ×2 (09:31→17:40)
--- NOTE | 2020-04-30 10:26 | IPNPDOC ---
Text Note Date of Service The patient was seen on 04/30/20. NOTE SUBJECTIVE: -No complaints this morning OBJECTIVE: General: NAD Eye: PERRLA, EOMI, non injected, anicteric ENT: Atraumatic, MMM Neck: Supple, no JVD Chest: Clear to auscultation bilaterally without crackles, rhonchi or wheezing Heart: RRR, no mrg Abdomen: Normoactive bowel sounds in all four quadrants, soft, NTND Extremity: no LE edema, WWP Skin: No rashes or lesions noted Neuro: Cranial Nerves 3-12 wnl, clear speech, moving all extremities Labs: WBC 17.8 Hgb 8.8 Platelets 333 Na 152 K 4.5 Cr 2.5 glucose 188 Assessment: 50 years old M with IDDM c/b neuropathy, hyperlipidemia, chronic kidney disease who was transferred from [facility] with DKA after difficulty obtaining his insulin from the pharmacy with DKA now resolved. Plan DKA: resolved -s/p aggressive IV hydration -s/p Insulin drip now on home levemir dosing with SSI -hypoglycemia protocol -FSBG AC/HS Chronic essential HTN -Continue home cardioprotective medications RAFAEL on CKD? Recent baseline Cr ~1.5 -Likely secondary to dehydration, with ongoing fluid repletion -Continue to monitor Dehydration -Likely secondary to DKA -s/p IV volume expansion Hypernatremia: -will give 1L of 1/2NS at 125cc/hr Metabolic acidosis 2/2 DKA: resolved DVT ppx: heparin SC BID Dispo: medsurg. VS,Fishbone, I+O VS, Fishbone, I+O Laboratory Tests 04/29/20 22:12 04/30/20 04:51 04/30/20 07:51 Vital Signs Date Time Temp Pulse Resp B/P (MAP) Pulse Ox O2 Delivery O2 Flow Rate FiO2 04/30/20 07:55 98.3 90 18 123/67 (85) Room Air 04/30/20 06:00 99 I&O- Last 24 Hours up to 6 AM 04/30/20 06:00 Intake Total 2790 ml Output Total 400 ml Balance 2390 ml ОЛЬГА LINTON MD Apr 30, 2020 09:12
[2020-04-30 13:29] LABS: CALCIUM LEVEL 8.3 MG/DL (8.5-10.1); CREATININE FOR GFR 2.28 MG/DL (0.70-1.30); GLOMERULAR FILTRATION RATE 32.3 (>56); POTASSIUM SERUM 4.3 MEQ/L (3.5-5.1)
[2020-04-30] MEDS ORDERED: HumaLOG INSULIN (NovoLOG) PER UNIT SC SCH (21:00)
[2020-04-30] MEDS: AMITRIPTYLINE 25 MG TAB PO SCH (22:01)
[2020-05-01 04:42] LABS: HEMATOCRIT 25.8 % (42.0-52.0); HEMOGLOBIN 8.2 g/dl (13.5-17.5); MEAN CORPUSCULAR HEMOGLOBIN 27.5 pg (27.0-33.0); MEAN CORPUSCULAR HGB CONC 31.8 g/dl (32.0-36.5); MEAN CORPUSCULAR VOLUME 86.6 fl (80.0-96.0); PLATELET COUNT, AUTOMATED 279 10^3/uL (150-450); RED BLOOD COUNT 2.98 10^6/uL (4.30-6.10); WHITE BLOOD COUNT 12.3 10^3/uL (4.0-10.0)
[2020-05-01 05:27] LABS: CREATININE FOR GFR 1.83 MG/DL (0.70-1.30); GLOMERULAR FILTRATION RATE 41.6 (>56); POTASSIUM SERUM 4.8 MEQ/L (3.5-5.1)
[2020-05-01 06:00] VITALS: BP 133/68
[2020-05-01] MEDS: HumaLOG INSULIN (NovoLOG) PER UNIT SC SCH (07:45)
[2020-05-01 08:00] VITALS: BP 157/81
[2020-05-01] MEDS ORDERED: TOUJ1.2I SC (08:57)
[2020-05-01] MEDS ORDERED: NOVOINJ SC (08:57)
[2020-05-01] MEDS: HEPARIN SOD (PORCINE) 5000UNITS/ML 1ML VIAL/SYRINGE SC SCH (09:00)
[2020-05-01 09:23] VITALS: BP 137/74
[2020-05-01] MEDS: BENAZEPRIL 5 MG TAB PO SCH (09:23)
[2020-05-01] MEDS: PANTOPRAZOLE 40MG VIAL (C9113 PER 1) IV SCH (09:23)
[2020-05-01] MEDS: LEVEMIR (INSULIN DETEMIR) 1 UNITS/0.01ML SC SCH (09:24)
--- NOTE | 2020-05-01 10:09 | DS.PDOC ---
Discharge Summary General Date of Admission Apr 29, 2020 at 20:51 Date of Discharge 05/01/2020 Attending Physician: ОЛЬГА LINTON MD Discharge Summary PROCEDURES PERFORMED DURING STAY: None ADMITTING DIAGNOSES: 1. DKA 2. RAFAEL on CKD 3. Hyperkalemia 4. Metabolic acidosis 5. Hypernatremia DISCHARGE DIAGNOSES: 1. DKA 2. RAFAEL on CKD 3. Hyperkalemia 4. Metabolic acidosis 5. Hypernatremia 6. Peripheral neuropathy 7. Hyperlipidemia COMPLICATIONS/CHIEF COMPLAINT: DKA. HISTORY OF PRESENT ILLNESS: 50 years old M with type 1 diabetes c/b peripheral neuropathy, hyperlipidemia and chronic kidney diseases who was transferred from [facility] where he presented with N/V/polyuria and polydypsia in the setting of trouble refilling his insulin prescription because per patient, his pharmacy did not have insulin until the next day and was diagnosed with DKA. At the [facility] he was found to have a Na of 153, potassium 6.9, VBG showed pH 7.1 bicarbonate 5.4, glucose level showed 1009, creatinine 2.7, anion gap 32 and was given fluid resuscitation, insulin drip and sodium bicarbonate and transferred to [facility]. HOSPITAL COURSE: Here at [facility], he was admitted to the ICU for DKA and RAFAEL on CKD as well as metabolic acidosis, hyperkalemia and hypernatremia that all resolved with IV fluids and insulin gtt. He was transitioned back to basal bolus dosing and remained stable. He also had leukocytosis without evidence of an infection that improved. He is now being discharged home with close PCP follow up with refill of his insulin. DISCHARGE MEDICATIONS: Please see below. ALLERGIES: Please see below. PHYSICAL EXAMINATION ON DISCHARGE: VITAL SIGNS: Please see below. General: NAD Eye: PERRLA, EOMI, non injected, anicteric ENT: Atraumatic, MMM Neck: Supple, no JVD Chest: Clear to auscultation bilaterally without crackles, rhonchi or wheezing Heart: RRR, no mrg Abdomen: Normoactive bowel sounds in all four quadrants, soft, NTND Extremity: no LE edema, WWP Skin: No rashes or lesions noted Neuro: Cranial Nerves 3-12 wnl, clear speech, moving all extremities LABORATORY DATA: Please see below. IMAGING: None PROGNOSIS: Good ACTIVITY: As tolerated DIET: Consistent carb DISCHARGE PLAN: Refill of long acting and short acting insulin, and close PCP follow up DISPOSITION: Home DISCHARGE INSTRUCTIONS: 1. Refill of long acting and short acting insulin, and close PCP follow up ITEMS TO FOLLOWUP ON ON OUTPATIENT: 1. DM1 management DISCHARGE CONDITION: Stable. TIME SPENT ON DISCHARGE: 44 minutes. Vital Signs/I&Os Vital Signs Date Time Temp Pulse Resp B/P (MAP) Pulse Ox O2 Delivery O2 Flow Rate FiO2 05/01/20 06:00 98.0 88 16 133/68 (89) 99 Room Air I&O- Last 24 Hours up to 6 AM0 05/01/20 06:00 Intake Total 3102.5 ml Output Total 1350 ml Balance 1752.5 ml Laboratory Data Labs 24H Laboratory Tests 2 04/30/20 11:50: Bedside Glucose (Misc Panel) 168H 04/30/20 12:49: Anion Gap 6L, Glomerular Filtration Rate 32.3L, Calcium Level 8.3L 04/30/20 16:41: Bedside Glucose (Misc Panel) 96 04/30/20 20:32: Magnesium Level 1.8 05/01/20 00:41: Bedside Glucose (Misc Panel) 173H 05/01/20 04:17: Nucleated Red Blood Cells % (auto) 0.0, Anion Gap 7L, Glomerular Filtration Rate 41.6L, Calcium Level 8.0L 05/01/20 07:42: Bedside Glucose (Misc Panel) 372H CBC/BMP Laboratory Tests 04/30/20 10:00 04/30/20 12:49 05/01/20 04:17 FSBS Laboratory Tests Test 04/30/20 11:50 04/30/20 16:41 05/01/20 00:41 05/01/20 07:42 Range/Units Bedside Glucose (Misc Panel) 168 96 173 372 70-105 MG/DL Microbiology Microbiology 04/29/20 Blood Culture - Preliminary, Resulted No growth after 24 hours . All specim... Discharge Medications Scheduled Amitriptyline HCl (Amitriptyline HCl) 75 Mg Tab, 75 MG PO QHS, (Reported) Benazepril HCl (Benazepril HCl) 5 Mg Tab, 5 MG PO DAILY, (Reported) Insulin Aspart (Novolog) 100 Unit/1 Ml Cartridge, 1 DOSE SC AC PER SLIDING SCALE Insulin Glargine,Hum.rec.anlog (Ene Terriekenneth) 300 Unit/1 Ml Insuln.pen, 36 UNIT SC DAILY Allergies Coded Allergies: gabapentin (Verified Allergy, Mild, SWELLING, 05/26/19) ОЛЬГА LINTON MD May 01, 2020 09:05
== END 2020-05-01 10:22 | disposition home or self-care (01) | DRG 638 ==
LOC: M ICU 20:51
PROVIDERS: ADMIT Internal Medicine; ATTEND Internal Medicine
DX: E10.11 Type 1 diabetes mellitus with ketoacidosis with coma (principal); N17.9 Acute kidney failure, unspecified; E87.0 Hyperosmolality and hypernatremia; Z20.828 Contact with and (suspected) exposure to other viral communicable diseases; E10.42 Type 1 diabetes mellitus with diabetic polyneuropathy; E78.5 Hyperlipidemia, unspecified; N18.9 Chronic kidney disease, unspecified; E86.0 Dehydration; T38.3X6A Underdosing of insulin and oral hypoglycemic [antidiabetic] drugs, initial encounter; E10.22 Type 1 diabetes mellitus with diabetic chronic kidney disease; Z66 Do not resuscitate; Z79.4 Long term (current) use of insulin; Z79.899 Other long term (current) drug therapy; Z91.138 Patient's unintentional underdosing of medication regimen for other reason

== ENCOUNTER 2020-08-06 09:24 | Inpatient (IN) | payer OTHER ==
[~2020-08-06] VITALS: Ht 165.1 cm; Wt 87.5 kg
[~2020-08-06 09:24] MED LIST changes: +CEFT1INJ5 IV; +INSULIN DRIP IV; +[UNRECOGNIZED DRUG - CODE] IV; +[UNRECOGNIZED DRUG - CODE] IV; +[UNRECOGNIZED DRUG - CODE] IV
[2020-08-06] MEDS ORDERED: NS 1,000 ML IV ONE (11:00)
[2020-08-06 12:42] LABS: RSV AMPLIFICATION NEGATIVE (NEGATIVE)
[2020-08-06 13:01] LABS: BASO % 0.1 % (0.0-1.0); EOS % 0.3 % (0.0-3.0); HEMATOCRIT 28.5 % (42.0-52.0); LYMPH # 0.6 10^3/uL (1.5-5.0); LYMPH % 8.3 % (24.0-44.0); MEAN CORPUSCULAR HEMOGLOBIN 27.6 pg (27.0-33.0); MEAN CORPUSCULAR HGB CONC 31.6 g/dl (32.0-36.5); MEAN CORPUSCULAR VOLUME 87.4 fl (80.0-96.0); MONO # 0.8 10^3/uL (0.0-0.8); MONO % 11.3 % (0.0-5.0); NEUTROPHILS # 5.3 10^3/uL (1.5-8.5); NEUTROPHILS % 79.6 % (36.0-66.0); PLATELET COUNT, AUTOMATED 199 10^3/uL (150-450); RED BLOOD COUNT 3.26 10^6/uL (4.30-6.10); WHITE BLOOD COUNT 6.7 10^3/uL (4.0-10.0)
[2020-08-06 13:27] LABS: D-DIMER QUANT 511.25 ng/ml (<500)
[2020-08-06 13:34] LABS: ALBUMIN 2.8 GM/DL (3.2-5.2); ALT/SGPT 26 U/L (12-78); BILIRUBIN,DIRECT < 0.1 MG/DL (0.0-0.2); BILIRUBIN,TOTAL 0.4 MG/DL (0.2-1.0); BLOOD UREA NITROGEN 23 MG/DL (7-18); CALCIUM LEVEL 8.1 MG/DL (8.5-10.1); CARBON DIOXIDE LEVEL 21 MEQ/L (21-32); CHLORIDE LEVEL 110 MEQ/L (98-107); CK-MB VALUE MASS 1.4 NG/ML (<3.6); CPK CREATINE PHOSPHOKINASE 55 U/L (39-308); CREATININE FOR GFR 1.63 MG/DL (0.70-1.30); GLOMERULAR FILTRATION RATE 47.5 (>56); GLUCOSE, FASTING 254 MG/DL (70-100); LIPASE 35 U/L (73-393); MB/CK RELATIVE INDEX 2.55 (< OR =4); POTASSIUM SERUM 4.6 MEQ/L (3.5-5.1); SODIUM LEVEL 138 MEQ/L (136-145); TOTAL PROTEIN 5.8 GM/DL (6.4-8.2); TROPONIN I < 0.02 NG/ML (< 0.10)
[2020-08-06] MEDS ORDERED: ONDANSETRON 4MG/2ML VIAL IV ONE (13:45)
[2020-08-06] MEDS ORDERED: MORPHINE 4 MG/ML 1ML VIAL/SYRINGE (J2270) IV ONE (13:45)
[2020-08-06] MEDS ORDERED: ISOVUE-370 76% 100ML VIAL As Ordered ONE (13:57)
--- NOTE | 2020-08-06 14:10 | REP ---
INDICATION: sob, cough COMPARISON: 09/12/2019 TECHNIQUE: Portable AP view of the chest FINDINGS: The mediastinum and cardiac silhouette are stable and within normal limits for portable technique. The lung ghotra demonstrate subtle perihilar opacities as well as increased interstitial markings. Differential diagnosis includes interstitial edema and interstitial pneumonia patterns. No effusion. No pneumothorax. IMPRESSION: Differential diagnosis includes interstitial edema and interstitial pneumonitis. No focal consolidation or effusion identified. <Electronically signed by Hugo Spring > 08/06/20 [id number]
--- NOTE | 2020-08-06 15:11 | REP ---
INDICATION: sob COMPARISON: None. TECHNIQUE: Axial contrast enhanced images from the thoracic inlet to the upper abdomen using pulmonary embolus technique with multiplanar re-formations. 75 ml Isovue 370 intravenous contrast material administered without complication. This CT examination was performed using the following dose reduction techniques: Automated exposure control, adjustment of mA and/or kv according to the patient's size, and use of iterative reconstruction technique. FINDINGS: Satisfactory enhancement of the pulmonary vasculature is achieved and no filling defects are identified to suggest pulmonary embolus. Further evaluation of the mediastinum demonstrates normal thoracic aorta, heart and pericardium. The bilateral lung ghotra demonstrate primarily lower lobe atelectasis and early consolidations with small pleural effusions along with reactive adenopathy. Tracheobronchial tree is patent. Thyroid gland is relatively normal by CT evaluation. Surrounding musculoskeletal structures are intact and without focal osseous abnormality. IMPRESSION: 1. No evidence for pulmonary embolus. 2. Bibasilar atelectasis and early forming consolidations with small pleural effusions and reactive adenopathy. Findings most compatible with multifocal pneumonia. <Electronically signed by Hugo Spring > 08/06/20 0741
--- NOTE | 2020-08-06 15:16 | REP ---
INDICATION: sob, muffled voice COMPARISON: None. TECHNIQUE: Axial contrast-enhanced images from the skull base to the thoracic inlet with coronal and sagittal reformations using 100 cc Isovue 370 intravenous contrast material. This CT examination was performed using the following dose reduction techniques: Automated exposure control, adjustment of mA and/or kv according to the patient's size, and use of iterative reconstruction technique. FINDINGS: The naso, terrie and hypopharynx, larynx and subglottic trachea are normal in appearance. Parapharyngeal and retropharyngeal spaces are normal. The salivary and thyroid glands are normal in size and density. Small lymph nodes less than 1 cm in size are present and essentially nonspecific. The lung apices are clear. The visualized sinuses are clear. Vasculature is relatively symmetric and normal. IMPRESSION: No obvious abnormality. <Electronically signed by Hugo Spring > 08/06/20 [id number]
[2020-08-06 15:57] LABS: C REACTIVE PROTEIN QUANTITATIV 5.03 MG/DL (0.00-0.30); FERRITIN 84 NG/ML (26-388); LDH LACTATE DEHYDROGENASE 194 U/L (87-241)
[2020-08-06] MEDS ORDERED: REMDESIVIR 200 MG in NS 250 ML IV ONE (16:15)
--- NOTE | 2020-08-06 16:56 | HPEPDOC ---
[facility] Medical History & Physical Date of Admission Aug 06, 2020 Date of Service: Aug 06, 2020 History and Physical CHIEF COMPLAINT: sore throat HISTORY OF PRESENT ILLNESS: 50 y/o male w CKD, HTN, DM presents with 4 days of decreased appetite, sore throat, dry cough without chest pain, pressure, tightness, fever, chills, nausea, vomiting, diarrhea, abdominal pain, anosmia, dysgeusia, headache, changes in vision, weight gain, weight loss, dysuria, urgency, frequency or shortness of breath . He denies paroxysmal nocturnal dyspnea, orthopnea, lower extremity edema, bright red blood per rectum, melena, or black tarry stools and complained of not feeling well, prompting him to come to the emergency room for evaluation where he was found to be covid -19 positive but 96% on room air with ambulation. He c/o hoarse voice , without dysphagia or odynophagia with dyspnea on exertion .CT chest showing bilateral infiltrates and bibasilar early consolidation and small pleural effusions. CT neck was negative for acute abnormality. Hospitalist was asked to admit the patient for Covid 19 multifocal Pneumonia, sore throat. PAST MEDICAL HISTORY: CKD, HTN, DM PAST SURGICAL HISTORY: Cholecystectomy SOCIAL HISTORY: Social alcohol use. Denies cigarette use and recreational drug use. Works at the [employer] FAMILY HISTORY: Mother with diabetes. Brother with type 2 diabetes ALLERGIES: Please see below. REVIEW OF SYSTEMS: Per HPI, 12 point system otherwise negative HOME MEDICATIONS: Please see below. PHYSICAL EXAMINATION: VITAL SIGNS: See below 96% on room air with ambulation GENERAL APPEARANCE: Awake, alert, oriented to person, place and time, answering questions appropriately HEENT: No stridor or cervical lymphadenopathy or thyromegaly. No JVD. Pupils equally round, reactive. Extra muscles are intact. Face is symmetric CARDIOVASCULAR: S1, S2, sinus rhythm LUNGS: Diminished breath sounds right basilar fine crepitations. Air entry is equal ABDOMEN: Positive bowel sounds, soft, nontender, nondistended. No hepatosplenomegaly EXTREMITIES: No cyanosis, clubbing or pitting edema LABORATORY DATA: See below. IMAGIN08/06/20 ct chest INDICATION: sob COMPARISON: None. TECHNIQUE: Axial contrast enhanced images from the thoracic inlet to the upper abdomen using pulmonary embolus technique with multiplanar re-formations. 75 ml Isovue 370 intravenous contrast material administered without complication. This CT examination was performed using the following dose reduction techniques: Automated exposure control, adjustment of mA and/or kv according to the patient's size, and use of iterative reconstruction technique. FINDINGS: Satisfactory enhancement of the pulmonary vasculature is achieved and no filling defects are identified to suggest pulmonary embolus. Further evaluation of the mediastinum demonstrates normal thoracic aorta, heart and pericardium. The bilateral lung ghotra demonstrate primarily lower lobe atelectasis and early consolidations with small pleural effusions along with reactive adenopathy. Tracheobronchial tree is patent. Thyroid gland is relatively normal by CT evaluation. Surrounding musculoskeletal structures are intact and without focal osseous abnormality. IMPRESSION: 1. No evidence for pulmonary embolus. 2. Bibasilar atelectasis and early forming consolidations with small pleural effusions and reactive adenopathy. Findings most compatible with multifocal pneumonia. <Electronically signed by Hugo Spring > 08/06/20 1507 08/06/20 ct neck [facility] NAME: [address] DATE OF : 1970 AGE: 50 SEX: M REPORT #: [id number] ROOM: ED [email or web address]CTOR: WALLY DAVIS PA-C Ordered for Date&Time: 08/06/20 1336 cc: [~ rep ct ivnm] Service Date&Time: 08/06/20 1444 This report is in Signed status. If this report is in a DRAFT status it has not yet been reviewed by the radiologist for accuracy. Thank you for having your radiology procedures performed at [facility] RADIOLOGY REPORT Date&Time printed: [~ rep prt dt last] [~ rep prt tm last] Page 2 of 2 [place] [id number] RADIOLOGY REPORT This report is in Signed status. If this report is in a DRAFT status it has not yet been reviewed by the rad iologist for accuracy. Thank you for having your radiology procedures performed at [facility] RADIOLOGY REPORT Date&Time printed: [~ rep prt dt last] [~ rep prt tm last] Page 1 of 1 INDICATION: sob, muffled voice COMPARISON: None. TECHNIQUE: Axial contrast-enhanced images from the skull base to the thoracic inlet with coronal and sagittal reformations using 100 cc Isovue 370 intravenous contrast material. This CT examination was performed using the following dose reduction techniques: Automated exposure control, adjustment of mA and/or kv according to the patient's size, and use of iterative reconstruction technique. FINDINGS: The naso, terrie and hypopharynx, larynx and subglottic trachea are normal in appearance. Parapharyngeal and retropharyngeal spaces are normal. The salivary and thyroid glands are normal in size and density. Small lymph nodes less than 1 cm in size are present and essentially nonspecific. The lung apices are clear. The visualized sinuses are clear. Vasculature is relatively symmetric and normal. IMPRESSION: No obvious abnormality. <Electronically signed by Hugo Spring > 08/06/20 1513 DD: Hugo Spring MD 08/06/20 150 DT: CAPO 08/06/20 151 DS: MARII 08/06/20 1509 08/06/20 150 MICROBIOLOGY: Please see below. ASSESSMENT: 50 y/o male w CKD, HTN, DM presents with 4 days of decreased appetite, sore throat, dry cough without chest pain, pressure, tightness, fever, chills, nausea, vomiting, diarrhea, abdominal pain, anosmia, dysgeusia, headache, changes in vision, weight gain, weight loss, dysuria, urgency, frequency or shortness of breath . He denies paroxysmal nocturnal dyspnea, orthopnea, lower extremity edema, bright red blood per rectum, melena, or black tarry stools and complained of not feeling well, prompting him to come to the emergency room for evaluation where he was found to be covid -19 positive but 96% on room air with ambulation. He c/o hoarse voice , without dysphagia or odynophagia with dyspnea on exertion .CT chest showing bilateral infiltrates and bibasilar early c onsolidation and small pleural effusions. CT neck was negative for acute abnormality. Hospitalist was asked to admit the patient for Covid 19 multifocal Pneumonia, sore throat Covid 19 multifocal pneumonia without hypoxia -O2 saturation is 96% on room air with ambulation -Patient does not meet inclusion criteria for remdesevir -Continue to cycle inflammatory markers, check sputum culture, strep screen -Supportive care with continuous oxygen. -If O2 sat decreases to 94%. Her low per patient may be eligible for antiviral therapy Pharyngitis -Check rapid strep screen -Most likely viral from Covid 19, infection -Supportive care with lozenges and spray , Hypertension -Resume home medications , Diabetes -Consistent carbohydrate diet, insulin siding scale with coverage and fingersticks every before meals at bedtime , Chronic kidney disease -At baseline creatinine. Monitor renal function. Strict I's and O's, daily weights and avoid nephrotoxins Diet consistent carbohydrate diet DVT prophylaxis with Lovenox Full code Vital Signs Vital Signs Date Time Temp Pulse Resp B/P (MAP) Pulse Ox O2 Delivery O2 Flow Rate FiO2 08/06/20 14:22 18 08/06/20 13:12 98.9 102 176/88 (117) 97 Room Air Laboratory Data Labs 24H Laboratory Tests 2 08/06/20 11:23: Coronavirus (COVID-19)(PCR) POSITIVEA, Influenza Type A (RT-PCR) NEGATIVE, Influenza Type B (RT-PCR) NEGATIVE, Respiratory Syncytial Virus (PCR) NEGATIVE 08/06/20 12:45: Immature Granulocyte % (Auto) 0.4, Neutrophils (%) (Auto) 79.6H, Lymphocytes (%) (Auto) 8.3L, Monocytes (%) (Auto) 11.3H, Eosinophils (%) (Auto) 0.3, Basophils (%) (Auto) 0.1, Neutrophils # (Auto) 5.3, Lymphocytes # (Auto) 0.6L, Monocytes # (Auto) 0.8, Eosinophils # (Auto) 0.0, Basophils # (Auto) 0.0, Nucleated Red Blood Cells % (auto) 0.0, Fibrinogen 407, D-Dimer, Quantitative 511.25H, Anion Gap 7L, Glomerular Filtration Rate 47.5L, Lactic Acid Level 1.8, Calcium Level 8.1L, Ferritin 84, Total Bilirubin 0.4, Direct Bilirubin < 0.1, Aspartate Amino Transf (AST/SGOT) 13, Alanine Aminotransferase (ALT/SGPT) 26, Alkaline Phosphatase 175H, Lactate Dehydrogenase 194, Total Creatine Kinase 55, Creatine Kinase MB 1.4, Creatine Kinase MB Relative Index 2.55, Troponin I < 0.02, C- Reactive Protein, Quantitative 5.03H, Total Protein 5.8L, Albumin 2.8L, Albumin/Globulin Ratio 0.9, Lipase 35L CBC/BMP Laboratory Tests 08/06/20 12:45 Microbiology Microbiology 08/06/20 Group A Streptococcus Screen (LUPE), Received Pending Home Medications Scheduled Amitriptyline HCl (Amitriptyline HCl) 75 Mg Tab, 75 MG PO QHS Benazepril HCl (Benazepril HCl) 5 Mg Tab, 5 MG PO DAILY Insulin Aspart (Novolog) 100 Unit/1 Ml Cartridge, 1 DOSE SC AC PER SLIDING SCALE Insulin Glargine,Hum.rec.anlog (Toujeo Solostar) 300 Unit/1 Ml Insuln.pen, 36 UNIT SC DAILY Allergies Coded Allergies: gabapentin (Verified Allergy, Mild, SWELLING, 05/26/19) A-FIB/CHADSVASC A-FIB History Current/History of A-Fib/PAF?: No Current PO Anticoag Therapy: No Age/Risk Factor Scoring CHADSVASC: CHADSVASC Response (Comments) Value Age Risk Factor Age < 65 years old 0 Gender Risk Factor Male 0 Hx of CHF No 0 Hx of HTN Yes 1 Hx of Stroke/TIA/or VTE No 0 Hx of Diabetes Yes 1 Hx of Vascular Disease No 0 Total 2 Treatment Treatment ordered: NONE ALEXX PEREZ MD Aug 06, 2020 16:56
[2020-08-06] MEDS ORDERED: CEPACOL LOZENGE PO ONE (17:30)
[2020-08-06] MEDS ORDERED: CHLORASEPTIC SPRAY MT ONE (17:30)
[2020-08-06] MEDS ORDERED: GLUCOSE 4GM CHEW TABLET PO PRN (17:30)
[2020-08-06] MEDS ORDERED: GLUCAGON INJ 1MG VIAL SC PRN (17:30)
[2020-08-06] MEDS ORDERED: dexameTHASONE 4 MG/ML 1ML VIAL (J1100 PER 1MG) IV SCH (18:00)
[2020-08-06] MEDS ORDERED: SODIUM CHLORIDE 0.9% INJ 10 ML SYR IV ONE (18:15)
[2020-08-06] MEDS: HumaLOG INSULIN (NovoLOG) PER UNIT SC SCH (18:31)
[2020-08-06 20:08] LABS: C REACTIVE PROTEIN QUANTITATIV 8.26 MG/DL (0.00-0.30)
[2020-08-06 20:10] LABS: MONO REFLEX EBV VCA IgM NEGATIVE (NEGATIVE)
[2020-08-06 20:33] LABS: HEPATITIS B SURFACE ANTIGEN NEGATIVE (NEGATIVE)
[2020-08-06] MEDS ORDERED: ENOXAPARIN 40MG/0.4ML SYRINGE (J1650 PER 10MG) SC SCH (21:00)
[2020-08-06] MEDS ORDERED: HumaLOG INSULIN (NovoLOG) PER UNIT SC SCH (21:00)
[2020-08-06 21:02] LABS: HIV 1&2 SCREEN CENTAUR NEGATIVE (NEGATIVE)
[2020-08-06 22:24] VITALS: BP 180/92
[2020-08-06] MEDS: CHLORASEPTIC SPRAY MT PRN (22:46)
[2020-08-06] MEDS: CEPACOL LOZENGE PO PRN (22:47)
[2020-08-06] MEDS: AMITRIPTYLINE 25MG TABLET PO SCH (23:13)
[2020-08-06] MEDS: cefTRIAXone SOD 2 GM in D5W MINI-BAG PLUS 50 ML IV SCH (23:13)
[2020-08-06 23:14] VITALS: BP 179/88
[2020-08-06] MEDS ORDERED: hydrALAZINE 20MG/ML 1ML VIAL (J0360 PER 20MG) IV ONE (23:30)
[2020-08-07] VITALS (15 sets, daily range): BP systolic 106–166; BP diastolic 53–77; O2SAT 92–96
[2020-08-07] MEDS: DOXYCYCLINE HYCLATE 100 MG in D5W MINI-BAG PLUS 100 ML IV SCH ×3 (00:48→22:21)
--- NOTE | 2020-08-07 05:22 | ECGEPIP ---
[facility] - ED Test Date: 2020-08-06 Pat Name: [address] Department: Room: [place] [address] Gender: Male Relocation Specialist: : [id number] Requested By: WALLY Castro PA-C Order Number: [id number] Reading MD: William Olvera Measurements Intervals [place] Rate: 100 P: 39 [place]: 136 QRS: 12 QRSD: 95 T: 63 QT: 352 QTc: 455 Interpretive Statements SINUS TACHYCARDIA Nonspecific T wave abnormality Baseline artifact Similar to tracing done 09-12-19 Electronically Signed on 08-07-2020 5:22:03 EST by William Olvera
[2020-08-07] MEDS: HumaLOG INSULIN (NovoLOG) PER UNIT SC SCH ×2 (07:30→11:21)
[2020-08-07] MEDS ORDERED: LEVEMIR (INSULIN DETEMIR) 1 UNITS/0.01ML SC SCH (09:00)
[2020-08-07] MEDS ORDERED: BENAZEPRIL 5 MG TAB PO SCH (09:00)
[2020-08-07] MEDS ORDERED: ONDANSETRON 4MG/2ML VIAL IV PRN (10:15)
[2020-08-07] MEDS: ASPIRIN 81 MG ENTERIC TAB PO SCH (10:24)
[2020-08-07] MEDS: CEPACOL LOZENGE PO PRN ×2 (10:25→20:37)
[2020-08-07] MEDS: NS 1,000 ML IV SCH ×2 (10:26→20:15)
[2020-08-07 11:23] LABS: BASO % 0.2 % (0.0-1.0); HEMATOCRIT 29.7 % (42.0-52.0); HEMOGLOBIN 8.7 g/dl (13.5-17.5); LYMPH # 0.4 10^3/uL (1.5-5.0); LYMPH % 4.8 % (24.0-44.0); MEAN CORPUSCULAR HGB CONC 29.3 g/dl (32.0-36.5); MEAN CORPUSCULAR VOLUME 95.5 fl (80.0-96.0); MONO # 0.6 10^3/uL (0.0-0.8); MONO % 7.7 % (0.0-5.0); NEUTROPHILS # 7.1 10^3/uL (1.5-8.5); NEUTROPHILS % 86.2 % (36.0-66.0); PLATELET COUNT, AUTOMATED 177 10^3/uL (150-450); RED BLOOD COUNT 3.11 10^6/uL (4.30-6.10); WHITE BLOOD COUNT 8.2 10^3/uL (4.0-10.0)
[2020-08-07] MEDS ORDERED: HumaLOG INSULIN (NovoLOG) PER UNIT SC ONE (11:30)
[2020-08-07 11:39] LABS: INR 1.09; PROTHROMBIN TIME 14.3 SECONDS (12.5-14.3)
[2020-08-07 11:40] LABS: PARTIAL THROMBOPLASTIN TIME 35.3 SECONDS (24.2-38.5)
[2020-08-07 11:42] LABS: D-DIMER QUANT 542.18 ng/ml (<500)
[2020-08-07 12:23] LABS: ALBUMIN 2.7 GM/DL (3.2-5.2); ALT/SGPT 24 U/L (12-78); BILIRUBIN,DIRECT < 0.1 MG/DL (0.0-0.2); BILIRUBIN,TOTAL 0.4 MG/DL (0.2-1.0); BLOOD UREA NITROGEN 36 MG/DL (7-18); CALCIUM LEVEL 7.8 MG/DL (8.5-10.1); CARBON DIOXIDE LEVEL 11 MEQ/L (21-32); CHLORIDE LEVEL 102 MEQ/L (98-107); CREATININE FOR GFR 2.41 MG/DL (0.70-1.30); FERRITIN 115 NG/ML (26-388); GLOMERULAR FILTRATION RATE 30.3 (>56); GLUCOSE, FASTING 739 MG/DL (70-100); MAGNESIUM LEVEL 2.1 MG/DL (1.8-2.4); NT-PRO BNP 2555 PG/ML (<125); POTASSIUM SERUM 7.3 MEQ/L (3.5-5.1); SODIUM LEVEL 131 MEQ/L (136-145); TOTAL PROTEIN 5.6 GM/DL (6.4-8.2); TROPONIN I < 0.02 NG/ML (< 0.10)
[2020-08-07] MEDS ORDERED: HumuLIN R (REGULAR) INSULIN (NovoLIN R) **100U/ML** PER UNIT IV SCH (12:30)
--- NOTE | 2020-08-07 12:39 | IPNPDOC ---
Text Note Date of Service The patient was seen on 08/07/20. NOTE SUBJECTIVE: -c/o sore throat and dry heaving -Feels dry and dehydrated PHYSICAL EXAMINATION: VITAL SIGNS: See below 96% on room air with ambulation GENERAL APPEARANCE: Awake, alert, oriented to person, place and time, NAD HEENT: NCAT, EOMI< dry MMM, clear posterior oropharynx without exudates. No cervical lymphadenopathy or thyromegaly. CARDIOVASCULAR: RRR, S1, S2, sinus rhythm LUNGS: Diminished breath sounds posterior R basilar fine crackles. ABDOMEN: Normoactive bowel sounds, soft, nontender, nondistended. No hepatosplenomegaly EXTREMITIES: No cyanosis, clubbing or pitting edema, WWP NEURO: moving all extremities, grossly nonfocal LABORATORY DATA: Reviewed. See below for details IMAGIN08/06/20 ct chest Axial contrast enhanced images from the thoracic inlet to the upper abdomen using pulmonary embolus technique with multiplanar re-formations. 75 ml Isovue 370 intravenous contrast material administered without complication. This CT examination was performed using the following dose reduction techniques: Automated exposure control, adjustment of mA and/or kv according to the patient's size, and use of iterative reconstruction technique. FINDINGS: Satisfactory enhancement of the pulmonary vasculature is achieved and no filling defects are identified to suggest pulmonary embolus. Further evaluation of the mediastinum demonstrates normal thoracic aorta, heart and pericardium. The bilateral lung ghotra demonstrate primarily lower lobe atelectasis and early consolidations with small pleural effusions along with reactive adenopathy. Tracheobronchial tree is patent. Thyroid gland is relatively normal by CT evaluation. Surrounding musculoskeleta l structures are intact and without focal osseous abnormality. IMPRESSION: 1. No evidence for pulmonary embolus. 2. Bibasilar atelectasis and early forming consolidations with small pleural effusions and reactive adenopathy. Findings most compatible with multifocal pneumonia. 08/06/20 CT Neck: FINDINGS: The naso, terrie and hypopharynx, larynx and subglottic trachea are normal in appearance. Parapharyngeal and retropharyngeal spaces are normal. The salivary and thyroid glands are normal in size and density. Small lymph nodes less than 1 cm in size are present and essentially nonspecific. The lung apices are clear. The visualized sinuses are clear. Vasculature is relatively symmetric and normal. IMPRESSION: No obvious abnormality. MICROBIOLOGY: Please see below. ASSESSMENT: 50 y/o male w CKD, HTN, DM presents with 4 days of decreased appetite, sore throat, dry cough and admitted with Covid 19 multifocal Pneumonia. Covid 19 multifocal pneumonia without hypoxia -O2 saturation is 96% on room air with ambulation -Patient was noted to not meet inclusion criteria for remdesevir but it was started nonetheless --> will discontinue at this time -Continue to cycle inflammatory markers, check sputum culture if he expectorates (very dry at this time) -continue CFX/doxy for potential concurrent bacterial PNA given elevated procalcitonin and CXR findings. Pharyngitis -f/u rapid strep screen -Most likely viral from Covid 19, infection -Supportive care with lozenges and spray -hydration and PRN zofran for dry heaving causing throat pain as well Dehydration: -will give 1L @ 100cc/hr Hypertension -Resume home medications Diabetes -Consistent carbohydrate diet, insulin siding scale with coverage and fingersticks every before meals at bedtime -will give 10u of levemir now, and start daily levemir given hyperglycemia despite low PO Chronic kidney disease -At baseline creatinine. Monitor renal function. Strict I's and O's, daily weights and avoid nephrotoxins DVT prophylaxis with Lovenox once daily Full code VS,Fishbone, I+O VS, Fishbone, I+O Laboratory Tests 08/06/20 12:45 Vital Signs Date Time Temp Pulse Resp B/P (MAP) Pulse Ox O2 Delivery O2 Flow Rate FiO2 08/07/20 04:00 98.7 92 20 142/74 (96) 95 Room Air I&O- Last 24 Hours up to 6 AM 08/07/20 06:00 Intake Total 1000 ml Output Total 0 ml Balance 1000 ml ОЛЬГА LINTON MD Aug 07, 2020 10:25
[2020-08-07] MEDS: INSULIN REGULAR IN 0.9 % NACL 100 UNIT in IV 1 EA IV SCH ×2 (13:55)
--- NOTE | 2020-08-07 14:48 | REP ---
INDICATION: S/P LIJ CVC Placement COMPARISON: 08/06/2020 TECHNIQUE: Portable AP view of the chest FINDINGS: Left IJ line with tip in the brachiocephalic/SVC confluence. Cardiac silhouette is normal. Subtle scattered infiltrates and left lower lobe/retrocardiac consolidation again noted. No effusion. No pneumothorax. Skeletal structures intact. IMPRESSION: Left IJ line. No pneumothorax. Scattered infiltrates and left lower lobe/retrocardiac consolidation. <Electronically signed by Hugo Spring > 08/07/20 [id number]
--- NOTE | 2020-08-07 15:55 | RO ---
OPERATIVE NOTE DATE OF OPERATION: 08/07/2020 PROCEDURE: Central line insertion. INDICATIONS: Venous access. PRE-PROCEDURE DIAGNOSIS: Diabetic ketoacidosis. POST-PROCEDURE DIAGNOSIS: Diabetic ketoacidosis. ATTENDING PHYSICIAN: Marsha Snyder MD CONSENT: Consent was obtained from the patient prior to the procedure. Indications, risks, and benefets were explained at length. PROCEDURE SUMMARY: A central line insertion practice form was completed by independent observer. A time-out was performed prior to this procedure. Full sterile technique was maintained throughout the procedure, including surgical cap, mask with protective eyewear, full gown, and sterile gloves. The patient was placed in Trendelenburg position. The left neck region was prepped using chlorhexidine scrub and draped in sterile fashion using a fenestrated drape and a sterile probe cover employed. The left internal jugular vein was identified using ultrasound. Anesthesia was achieved using 1% lidocaine. Using real real-time [id number] guidance, the introducer needle was inserted into the internal jugular vein under direct ultrasound visualization. Venous blood was withdrawn. The syringe was removed and a guidewire was advanced into the introducer needle. The introducer needle was removed over the guidewire. A small incision was made at the skin surface with a scalpel and the dilator was exchanged over the guidewire. After appropriate dilation was obtained, the dilator was exchanged over the wire for a triple-lumen central venous catheter. The wire was removed and the catheter was sutured in place at 19 cm. A sterile chlorhexidine-impregnated dressing was placed over the catheter at the insertion site. The patient tolerated the procedure without any hemodynamic compromise. At the time of procedure completion, all ports were aspirated and flushed properly. Post-procedure chest x-ray shows the left IJ crossing over the midline at the end of the brachiocephalic vein leading to the SVC. Estimated blood loss is less than 2 mL.
[2020-08-07 16:11] LABS: CALCIUM LEVEL 7.5 MG/DL (8.5-10.1); CREATININE FOR GFR 3.01 MG/DL (0.70-1.30); GLOMERULAR FILTRATION RATE 23.4 (>56); POTASSIUM SERUM 4.9 MEQ/L (3.5-5.1); TROPONIN I < 0.02 NG/ML (< 0.10)
[2020-08-07 16:13] LABS: INFLUENZA A AMPLIFICATION NEGATIVE (NEGATIVE); INFLUENZA B AMPLIFICATION NEGATIVE (NEGATIVE)
[2020-08-07] MEDS ORDERED: REMDESIVIR 100 MG in NS 250 ML IV SCH ×4 (16:15)
[2020-08-07] MEDS ORDERED: SODIUM CHLORIDE 0.9% INJ 10 ML SYR IV SCH ×2 (17:15)
[2020-08-07] MEDS: INSULIN IV RATE CHANGE DOCUMENTATION ML/HR XX SCH ×2 (17:56→19:01)
[2020-08-07] MEDS: CHLORASEPTIC SPRAY MT PRN (18:43)
[2020-08-07] MEDS: D5W/0.45% SODIUM CHLORIDE 1,000 ML IV SCH (19:30)
[2020-08-07 20:14] LABS: CALCIUM LEVEL 7.6 MG/DL (8.5-10.1); CREATININE FOR GFR 3.01 MG/DL (0.70-1.30); GLOMERULAR FILTRATION RATE 23.4 (>56); POTASSIUM SERUM 4.9 MEQ/L (3.5-5.1)
[2020-08-07] MEDS: cefTRIAXone SOD 2 GM in D5W MINI-BAG PLUS 50 ML IV SCH (20:31)
[2020-08-07] MEDS: AMITRIPTYLINE 25MG TABLET PO SCH (21:00)
[2020-08-07] MEDS ORDERED: LIDOCAINE VISCOUS 2% SOLN 15ML UDC PO ONE (21:00)
[2020-08-07] MEDS ORDERED: LEVEMIR (INSULIN DETEMIR) 1 UNITS/0.01ML SC ONE (21:00)
[2020-08-07 21:18] LABS: CALCIUM LEVEL 7.6 MG/DL (8.5-10.1); CREATININE FOR GFR 2.92 MG/DL (0.70-1.30); GLOMERULAR FILTRATION RATE 24.3 (>56); PHOSPHORUS LEVEL 3.1 MG/DL (2.5-4.9); POTASSIUM SERUM 4.6 MEQ/L (3.5-5.1)
[2020-08-07 22:16] LABS: ABG BASE EXCESS -3.3 (-2.0-2.0); ABG HCO3 21.4 MEQ/L (22.0-26.0); ABG O2 SATURATION 93.5 % (95.0-99.0); ABG PARTIAL PRESSURE CO2 36.7 mmHg (35.0-45.0); ABG PARTIAL PRESSURE O2 64.3 mmHg (75.0-100.0); ABG STANDARD HCO3 21.6 MEQ/L (22.0-26.0); ABG TOTAL CO2 22.5 MEQ/L (22.0-29.0); ABG pH (ARTERIAL) 7.383 UNITS (7.350-7.450)
[2020-08-07] MEDS: ENOXAPARIN 40MG/0.4ML SYRINGE (J1650 PER 10MG) SC SCH (22:22)
[2020-08-08] VITALS (24 sets, daily range): BP systolic 111–177; BP diastolic 58–85; O2SAT 89–98
[2020-08-08] MEDS: INSULIN IV RATE CHANGE DOCUMENTATION ML/HR XX SCH (03:50)
[2020-08-08] MEDS: D5W/0.45% SODIUM CHLORIDE 1,000 ML IV SCH (05:06)
[2020-08-08 05:08] LABS: BASO % 0.3 % (0.0-1.0); EOS # 0.1 10^3/uL (0.0-0.5); EOS % 0.8 % (0.0-3.0); HEMATOCRIT 23.3 % (42.0-52.0); HEMOGLOBIN 7.2 g/dl (13.5-17.5); LYMPH # 1.3 10^3/uL (1.5-5.0); MEAN CORPUSCULAR HEMOGLOBIN 27.5 pg (27.0-33.0); MEAN CORPUSCULAR HGB CONC 30.9 g/dl (32.0-36.5); MEAN CORPUSCULAR VOLUME 88.9 fl (80.0-96.0); MONO # 0.8 10^3/uL (0.0-0.8); MONO % 10.3 % (0.0-5.0); NEUTROPHILS # 5.6 10^3/uL (1.5-8.5); NEUTROPHILS % 72.1 % (36.0-66.0); PLATELET COUNT, AUTOMATED 185 10^3/uL (150-450); RED BLOOD COUNT 2.62 10^6/uL (4.30-6.10); WHITE BLOOD COUNT 7.8 10^3/uL (4.0-10.0)
[2020-08-08 05:20] LABS: INR 1.03; PROTHROMBIN TIME 13.7 SECONDS (12.5-14.3)
[2020-08-08 05:21] LABS: PARTIAL THROMBOPLASTIN TIME 53.8 SECONDS (24.2-38.5)
[2020-08-08 05:23] LABS: D-DIMER QUANT 395.99 ng/ml (<500)
[2020-08-08 05:45] LABS: ALBUMIN 2.1 GM/DL (3.2-5.2); ALT/SGPT 16 U/L (12-78); BILIRUBIN,DIRECT < 0.1 MG/DL (0.0-0.2); BILIRUBIN,TOTAL 0.2 MG/DL (0.2-1.0); BLOOD UREA NITROGEN 39 MG/DL (7-18); CALCIUM LEVEL 7.2 MG/DL (8.5-10.1); CARBON DIOXIDE LEVEL 23 MEQ/L (21-32); CHLORIDE LEVEL 115 MEQ/L (98-107); CREATININE FOR GFR 3.04 MG/DL (0.70-1.30); FERRITIN 96 NG/ML (26-388); GLOMERULAR FILTRATION RATE 23.2 (>56); GLUCOSE, FASTING 89 MG/DL (70-100); MAGNESIUM LEVEL 1.9 MG/DL (1.8-2.4); NT-PRO BNP 3208 PG/ML (<125); PHOSPHORUS LEVEL 3.9 MG/DL (2.5-4.9); POTASSIUM SERUM 4.2 MEQ/L (3.5-5.1); SODIUM LEVEL 143 MEQ/L (136-145); TOTAL PROTEIN 4.5 GM/DL (6.4-8.2); TROPONIN I < 0.02 NG/ML (< 0.10)
[2020-08-08] MEDS: ASPIRIN 81 MG ENTERIC TAB PO SCH (08:13)
[2020-08-08] MEDS: INSULIN REGULAR IN 0.9 % NACL 100 UNIT in IV 1 EA IV SCH ×2 (08:32)
[2020-08-08] MEDS: DOXYCYCLINE HYCLATE 100 MG in D5W MINI-BAG PLUS 100 ML IV SCH ×2 (09:29→21:02)
[2020-08-08 10:24] LABS: OSMOLALITY SERUM 299 MOSM/KG (275-295)
[2020-08-08] MEDS: HumaLOG INSULIN (NovoLOG) PER UNIT SC SCH ×2 (12:00→16:34)
[2020-08-08 14:09] LABS: HEPATITIS B CORE ANTIBODY IGG Negative (Negative); MYCOPLASMA PNEUMONIAE IgG <100 U/mL (0-99); MYCOPLASMA PNEUMONIAE IgM <770 U/mL (0-769)
--- NOTE | 2020-08-08 15:05 | IPNPDOC ---
Text Note Date of Service The patient was seen on 08/08/20. NOTE SUBJECTIVE: -Feels ok, now on 2L NC -DKA resolved, sore throat is better PHYSICAL EXAMINATION: VITAL SIGNS: HDS, on 2L NC, afebrile GENERAL APPEARANCE: Awake, alert, oriented to person, place and time, NAD HEENT: NCAT, EOMI, MMM, clear posterior oropharynx without exudates. No cervical lymphadenopathy or thyromegaly. CARDIOVASCULAR: RRR, S1, S2, sinus rhythm LUNGS: Diminished breath sounds posterior R basilar fine crackles. ABDOMEN: Normoactive bowel sounds, soft, nontender, nondistended. No hepatosplenomegaly EXTREMITIES: No cyanosis, clubbing or pitting edema, WWP NEURO: moving all extremities, grossly nonfocal LABORATORY DATA: Na 143 K 4.2 Cr 3.04 pBNP 3208 CRP 11.3 procalcitonin 2.62 Ddimer 395 fibrinogen 466 WBC 7.8 Hgb 7.2 platelets 185 IMAGIN08/06/20 ct chest Axial contrast enhanced images from the thoracic inlet to the upper abdomen using pulmonary embolus technique with multiplanar re-formations. 75 ml Isovue 370 intravenous contrast material administered without complication. This CT examination was performed using the following dose reduction techniques: Automated exposure control, adjustment of mA and/or kv according to the patient's size, and use of iterative reconstruction technique. FINDINGS: Satisfactory enhancement of the pulmonary vasculature is achieved and no filling defects are identified to suggest pulmonary embolus. Further evaluation of the mediastinum demonstrates normal thoracic aorta, heart and pericardium. The bilateral lung ghotra demonstrate primarily lower lobe atelectasis and early consolidations with small pleural effusions along with reactive adenopathy. Tracheobronchial tree is patent. Thyroid gland is relatively normal by CT evaluation. Surrounding musculoskeletal structures are intact and without focal osseous abnormality. IMPRESSION: 1. No evidence for pulmonary embolus. 2. Bibasilar atelectasis and early forming consolidations with small pleural effusions and reactive adenopathy. Findings most compatible with multifocal pneumonia. 08/06/20 CT Neck: FINDINGS: The naso, terrie and hypopharynx, larynx and subglottic trachea are normal in appearance. Parapharyngeal and retropharyngeal spaces are normal. The salivary and thyroid glands are normal in size and density. Small lymph nodes less than 1 cm in size are present and essentially nonspecific. The lung apices are clear. The visualized sinuses are clear. Vasculature is relatively symmetric and normal. IMPRESSION: No obvious abnormality. MICROBIOLOGY: Please see below. ASSESSMENT: 50 y/o male w CKD, HTN, DM presents with 4 days of decreased appetite, sore throat, dry cough and admitted with Covid 19 multifocal Pneumonia. Covid 19 multifocal pneumonia without hypoxia -O2 saturation is 96% on room air with ambulation -Patient did not meet inclusion criteria for remdesevir given that symptoms have been going on for >7d, discontinued -Continue to cycle inflammatory markers, check sputum culture if he expectorates (very dry at this time) -continue CFX/doxy for potential concurrent bacterial PNA given elevated procalcitonin and CXR findings. Pharyngitis -Rapid strep screen negative -Most likely viral from Covid 19, infection -Supportive care with lozenges and spray -hydration and PRN zofran for dry heaving causing throat pain as well Dehydration: -has been on fluids, will stop fluids as I am about to give 2u of blood and he has newly noted hypoxemia Hypertension -Holding home ACEi Diabetes c/b DKA i/s/o steroids and dehydration -DKA has resolved s/p insulin gtt and fluids -Consistent carbohydrate diet, insulin siding scale with coverage and fingersticks every before meals at bedtime -levemir 15u daily RAFAEL on Chronic kidney disease, worsening in the setting of recent contrast at admission and ACEi. -Monitor renal function that appears to have worsened despite hydration --> e- consulting nephrology, as he is also developing hypoxemia now with worsening pBNP. Dr. Ortiz agreed with blood and stopping fluids and strict I/Os at this time. Also will get a renal US. -Strict I's and O's, daily weights and avoid nephrotoxins -holding home ACEi DVT prophylaxis with Lovenox once daily Full code VS,Fishbone, I+O VS, Fishbone, I+O Laboratory Tests 08/07/20 10:45 08/07/20 15:21 08/07/20 20:30 08/08/20 05:00 Vital Signs Date Time Temp Pulse Resp B/P (MAP) Pulse Ox O2 Delivery O2 Flow Rate FiO2 08/08/20 08:11 90 136/66 08/08/20 08:00 99.0 20 98 Nasal Cannula 2.0 I&O- Last 24 Hours up to 6 AM 08/08/20 06:00 Intake Total 2265 ml Output Total 575 ml Balance 1690 ml ОЛЬГА LINTON MD Aug 08, 2020 08:43
--- NOTE | 2020-08-08 15:46 | IPN ---
PROGRESS NOTE DATE: 08/08/2020 Dr. Stewart called me this morning requesting nephrology recommendations for this patient admitted with COVID pneumonia, and she discussed the case with me. Chart was subsequently reviewed by myself. Patient is a 50-year-old male with a past medical history of hypertension, insulin-dependent diabetes mellitus, and chronic kidney disease (CKD), stage III, with history of multiple recurrent acute kidney injuries in the past. He does not followup in the nephrology office. When prior labs are reviewed, he appears to have a baseline creatinine of around 1.5, although this has varied significantly in the past with a range of 1.1-2.9 on review of older labs. He was admitted on August 06 with an admission creatinine of 1.6 and complained of multiple symptoms, including decreased appetite and cough. CT chest was performed with intravenous (IV) contrast on August 06, and it showed bibasilar atelectasis and early forming consolidations with small pleural effusions with findings most compatible for multifocal pneumonia. His COVID-19 polymerase chain reaction (PCR) was positive, and laboratory studies revealed anemia. Patient subsequently went into diabetic ketoacidosis (DKA) with glucose into the 700s and became significantly hyperkalemic with potassium of 7.3 after he received steroids for the management of his COVID-19. He was treated with the usual DKA protocol with intravenous (IV) fluids and insulin drip, and his gap closed, and his hyperkalemia resolved as well. His serum bicarbonate came up from 11 up to 24; however, the patient did have worsening renal function with creatinine increasing from 1.6 to 3.0. Of note, he was also continued on his home angiotensin-converting enzyme (VARINDER) inhibitor while he was in the hospital and had IV contrast exposure. His current oxygen requirements are minimal with 1-2 liters. Most recent laboratory studies show sodium 143, potassium 4.2, BUN 39, creatinine 3.0, which is an increase from 1.6 on August 06, BNP of 3200. Hemoglobin 7.2 and platelets 185. His inpatient medications are reviewed and include: - ceftriaxone 2 grams IV daily - doxycycline 100 mg IV twice a day - Tylenol as needed - amitriptyline 75 mg by mouth every night - amlodipine 10 mg by mouth daily - aspirin 81 mg by mouth daily - enoxaparin 40 mg subcutaneous every night - insulin - Zofran as needed NEPHROLOGY RECOMMENDATIONS AND ASSESSMENT: Patient is a 50-year-old male with a history of chronic kidney disease (CKD), stage III. Baseline creatinine looks to be around 1.5. He was admitted with COVID-19 pneumonia and went into diabetic ketoacidosis (DKA) after receiving IV steroids (patient has a history of insulin-dependent diabetes mellitus). He had IV contrast CT scan on this admission and was also continued on his home angiotensin-converting enzyme (VARINDER) inhibitor. His renal function has worsened, and I am asked for nephrology recommendations, and this is a teleconsult. Patient was not seen nor examined by myself. Acute kidney injury is secondary to contrast nephropathy with concomitant VARINDER inhibitor use. I have discontinued his benazepril. Please keep him off of VARINDER or angiotensin-receptor arnold (ARB) at this time. His renal function may continue to worsen. His date of contrast exposure was August 06. There has been no renal imaging, and I suggest to get a kidney ultrasound to make sure that there is no obstruction. In terms of fluid management, the patient is on an oral diet and tolerating oral. Given that he is significantly anemic, at this point instead of IV fluids, I would recommend to proceed with 2 units packed red blood cells transfusion, which will also help with intravascular volume and renal perfusion. Please avoid further IV contrast studies unless urgent/emergent. Please continue intake and output monitoring along with daily chest x-ray to help guide management of fluid administration. Nephrology will follow the chart peripherally, and recommendations will be discussed with the hospitalist service. There is no billing for this televisit. JULISSA
[2020-08-08 16:13] LABS: ACETONE/KETONE 2.13 MG/DL (<2.81)
[2020-08-08 16:14] LABS: ACETONE/KETONE 25.82 MG/DL (<2.81)
--- NOTE | 2020-08-08 16:17 | REP ---
INDICATION: RAFAEL on CKD. COMPARISON: Comparison limited abdominal sonography June 11, 2019.. TECHNIQUE: Urinary tract sonography. FINDINGS: Scanning at the level of the urinary bladder confirms smooth bladder garzon. No extravesical lesion is seen. Prostate dimensions by transabdominal sonography are 3.6 x 4.4 x 3.5 cm, calculated volume 29 mL.. Renal cortical echogenicity pattern is normal bilaterally and contours are smooth. There is no evidence of hydronephrosis, cyst, mass, or calculus in either kidney. The right kidney measures 10.9 x 5.3 x 4.4 cm. Left renal dimensions are 10.1 x 4.8 x 4.6 cm. IMPRESSION: Normal urinary tract sonography. <Electronically signed by Kaz Jarrell > 08/08/20 [id number]
[2020-08-08] MEDS ORDERED: ONDANSETRON 4MG/2ML VIAL IV PRN (17:00)
[2020-08-08] MEDS: METOCLOPRAMIDE INJ 10MG/2ML VIAL (J2765 PER 1) IV PRN (18:03)
[2020-08-08] MEDS: cefTRIAXone SOD 2 GM in D5W MINI-BAG PLUS 50 ML IV SCH (19:49)
[2020-08-08] MEDS: ENOXAPARIN 40MG/0.4ML SYRINGE (J1650 PER 10MG) SC SCH (19:50)
[2020-08-08] MEDS: AMITRIPTYLINE 25MG TABLET PO SCH (19:50)
[2020-08-08] MEDS ORDERED: hydrALAZINE 20MG/ML 1ML VIAL (J0360 PER 20MG) IV ONE (20:30)
[2020-08-08] MEDS ORDERED: HumaLOG INSULIN (NovoLOG) PER UNIT SC SCH (21:00)
[2020-08-09] VITALS (25 sets, daily range): BP systolic 114–175; BP diastolic 57–79; O2SAT 89–95
[2020-08-09 04:42] LABS: BASO % 0.2 % (0.0-1.0); HEMATOCRIT 30.3 % (42.0-52.0); LYMPH # 0.4 10^3/uL (1.5-5.0); LYMPH % 6.8 % (24.0-44.0); MEAN CORPUSCULAR HEMOGLOBIN 28.2 pg (27.0-33.0); MEAN CORPUSCULAR HGB CONC 32.3 g/dl (32.0-36.5); MEAN CORPUSCULAR VOLUME 87.3 fl (80.0-96.0); MONO # 0.5 10^3/uL (0.0-0.8); MONO % 8.3 % (0.0-5.0); NEUTROPHILS # 4.6 10^3/uL (1.5-8.5); NEUTROPHILS % 82.9 % (36.0-66.0); PLATELET COUNT, AUTOMATED 182 10^3/uL (150-450); RED BLOOD COUNT 3.47 10^6/uL (4.30-6.10); WHITE BLOOD COUNT 5.6 10^3/uL (4.0-10.0)
[2020-08-09 04:50] LABS: HEMOGLOBIN 9.8 g/dl (13.5-17.5)
[2020-08-09 04:55] LABS: INR 1.08; PROTHROMBIN TIME 14.2 SECONDS (12.5-14.3)
[2020-08-09 04:56] LABS: PARTIAL THROMBOPLASTIN TIME 47.7 SECONDS (24.2-38.5)
[2020-08-09 04:58] LABS: D-DIMER QUANT 503.46 ng/ml (<500)
[2020-08-09 05:22] LABS: ALBUMIN 2.3 GM/DL (3.2-5.2); BILIRUBIN,DIRECT 0.1 MG/DL (0.0-0.2); BILIRUBIN,TOTAL 0.4 MG/DL (0.2-1.0); C REACTIVE PROTEIN QUANTITATIV 14.3 MG/DL (0.00-0.30); CALCIUM LEVEL 7.6 MG/DL (8.5-10.1); CREATININE FOR GFR 3.2 MG/DL (0.70-1.30); GLOMERULAR FILTRATION RATE 21.8 (>56); MAGNESIUM LEVEL 1.6 MG/DL (1.8-2.4); POTASSIUM SERUM 5.3 MEQ/L (3.5-5.1); TOTAL PROTEIN 5.4 GM/DL (6.4-8.2)
[2020-08-09] MEDS ORDERED: LEVEMIR (INSULIN DETEMIR) 1 UNITS/0.01ML SC ONE ×2 (06:00→09:00)
[2020-08-09] MEDS: HumaLOG INSULIN (NovoLOG) PER UNIT SC SCH ×4 (07:42→21:00)
[2020-08-09] MEDS: ASPIRIN 81 MG ENTERIC TAB PO SCH (09:00)
[2020-08-09] MEDS: DOXYCYCLINE HYCLATE 100 MG in D5W MINI-BAG PLUS 100 ML IV SCH ×2 (10:27→23:12)
[2020-08-09 10:36] LABS: ACETONE/KETONE 23.56 MG/DL (<2.81)
--- NOTE | 2020-08-09 11:14 | ECGEPIP ---
[facility] Test Date: 2020-08-07 Pat Name: [address] Department: Room: [place] [address] Gender: Male Supervisor Backfilling: RAVINDER : 1970 Requested By: SARAH ISABEL Order Number: [id number] Reading MD: Washington Walters Measurements Intervals [place] Rate: 98 P: 41 [place]: 130 QRS: 18 QRSD: 98 T: 31 QT: 373 QTc: 476 Interpretive Statements SINUS RHYTHM WITH FREQUENT ECTOPIC PREMATURE COMPLEXES NONSPECIFIC T-WAVE ABNORMALITY ABNORMAL RHYTHM ECG PVCs from 08/06/20 Electronically Signed on 08-09-2020 11:14:02 EST by Washington Walters
[2020-08-09] MEDS ORDERED: INSULIN REGULAR IN 0.9 % NACL 100 UNIT in IV 1 EA IV SCH ×2 (12:20)
--- NOTE | 2020-08-09 12:26 | IPNPDOC ---
Text Note Date of Service The patient was seen on 08/09/20. NOTE SUBJECTIVE: -Feels ok -Had severe nausea and emesis yesterday, some diarrhea as well, better this morning -starting to make adequate amounts of urine -Back in DKA PHYSICAL EXAMINATION: VITAL SIGNS: HDS, now on room air, afebrile GENERAL APPEARANCE: Awake, alert, oriented to person, place and time, NAD HEENT: NCAT, EOMI, MMM, clear posterior oropharynx without exudates. No cervical lymphadenopathy or thyromegaly. CARDIOVASCULAR: RRR, S1, S2, sinus rhythm LUNGS: Diminished breath sounds posterior R basilar fine crackles. ABDOMEN: Normoactive bowel sounds, soft, nontender, nondistended. No hepatosplenomegaly EXTREMITIES: No cyanosis, clubbing or pitting edema, WWP NEURO: moving all extremities, grossly nonfocal LABORATORY DATA: Cr 3.23 CRP 14.3 procalcitonin 9.3! Ddimer 503 fibrinogen 579 WBC 5.6 Hgb 9.8 platelets 182 IMAGIN08/08/2020: Renal US: Scanning at the level of the urinary bladder confirms smooth bladder garzon. No extravesical lesion is seen. Prostate dimensions by transabdominal sonography are 3.6 x 4.4 x 3.5 cm, calculated volume 29 mL.. Renal cortical echogenicity pattern is normal bilaterally and contours are smooth. There is no evidence of hydronephrosis, cyst, mass, or calculus in either kidney. The right kidney measures 10.9 x 5.3 x 4.4 cm. Left renal dimensions are 10.1 x 4.8 x 4.6 cm. IMPRESSION: Normal urinary tract sonography. 08/06/20 ct chest Axial contrast enhanced images from the thoracic inlet to the upper abdomen using pulmonary embolus technique with multiplanar re-formations. 75 ml Isovue 370 intravenous contrast material administered without complication. This CT examination was performed using the following dose reduction techniques: Automated exposure control, adjustment of mA and/or kv according to the patient's size, and use of iterative reconstruction technique. FINDINGS: Satisfactory enhancement of the pulmonary vasculature is achieved and no filling defects are identified to suggest pulmonary embolus. Further evaluation of the mediastinum demonstrates normal thoracic aorta, heart and pericardium. The bilateral lung ghotra demonstrate primarily lower lobe atelectasis and early consolidations with small pleural effusions along with reactive adenopathy. Tracheobronchial tree is patent. Thyroid gland is relatively normal by CT evaluation. Surrounding musculoskeletal structures are intact and without focal osseous abnormality. IMPRESSION: 1. No evidence for pulmonary embolus. 2. Bibasilar atelectasis and early forming consolidations with small pleural effusions and reactive adenopathy. Findings most compatible with multifocal pneumonia. 08/06/20 CT Neck: FINDINGS: The naso, terrie and hypopharynx, larynx and subglottic trachea are normal in appearance. Parapharyngeal and retropharyngeal spaces are normal. The salivary and thyroid glands are normal in size and density. Small lymph nodes less than 1 cm in size are present and essentially nonspecific. The lung apices are clear. The visualized sinuses are clear. Vasculature is relatively symmetric and normal. IMPRESSION: No obvious abnormality. MICROBIOLOGY: Please see below. ASSESSMENT: 50 y/o male w CKD, HTN, DM presents with 4 days of decreased appetite, sore throat, dry cough and admitted with Covid 19 multifocal Pneumonia. Covid 19 multifocal pneumonia without hypoxia -O2 saturation is 96% on room air -Patient did not meet inclusion criteria for remdesevir given that symptoms have been going on for >7d, discontinued -Continue to cycle inflammatory markers, sputum culture with mixed laquita pending speciation and sensitivities, with procalcitonin of 9.3 -continue CFX/doxy for potential concurrent bacterial PNA given elevated procalcitonin, CXR findings and sputum laquita. MRSA PCR was negative Pharyngitis -Rapid strep screen negative -Most likely viral from Covid 19, infection -Supportive care with lozenges and spray -hydration and PRN zofran and reglan for nausea, emesis Dehydration: -s/p fluids Hypertension -Holding home ACEi Diabetes c/b DKA i/s/o steroids and initially dehydrated. - insulin gtt - NPO - Q4H BMPs, phos and osmolality -Goal will be to give 40u levemir at point of transitioning. Patient takes 36u at baseline and was transitioned overnight and given 15u levemir while on steroids as well. Oliguric RAFAEL on Chronic kidney disease, worsening in the setting of recent contrast at admission and ACEi. -Monitor renal function that appears to have worsened despite hydration --> e- consulting nephrology. Dr. Ortiz agreed with blood repletion and stopping fluids and strict I/Os. -Renal US wnl -Strict I's and O's, daily weights and avoid nephrotoxins -holding home ACEi -UOP is improving, will monitor Cr Acute on chronic anemia: -s/p 2u pRBCs -Fe, TIBC, ferritin, retic, B12 and folate DVT prophylaxis with Lovenox once daily Full code VS,Fishbone, I+O VS, Fishbone, I+O Laboratory Tests 08/09/20 04:32 Vital Signs Date Time Temp Pulse Resp B/P (MAP) Pulse Ox O2 Delivery O2 Flow Rate FiO2 08/09/20 06:00 99.3 103 20 175/78 (110) 94 Room Air 08/09/20 04:00 2.0 I&O- Last 24 Hours up to 6 AM 08/09/20 06:00 Intake Total 2495 ml Output Total 1075 ml Balance 1420 ml ОЛЬГА LINTON MD Aug 09, 2020 08:30
[2020-08-09] MEDS ORDERED: HumuLIN R (REGULAR) INSULIN (NovoLIN R) **100U/ML** PER UNIT IV SCH (12:30)
[2020-08-09] MEDS ORDERED: MAG SULF 1GM/100ML (MAG RUN) 1 GM in IV 1 EA IV ONE (13:00)
[2020-08-09] MEDS: INSULIN IV RATE CHANGE DOCUMENTATION ML/HR XX SCH ×2 (14:06→15:37)
[2020-08-09] MEDS ORDERED: D5W/0.9% SODIUM CHLORIDE 1,000 ML IV SCH (16:00)
[2020-08-09 17:22] LABS: C REACTIVE PROTEIN QUANTITATIV 16.7 MG/DL (0.00-0.30); CREATININE FOR GFR 3.18 MG/DL (0.70-1.30); PHOSPHORUS LEVEL 2.9 MG/DL (2.5-4.9); POTASSIUM SERUM 4.3 MEQ/L (3.5-5.1)
[2020-08-09] MEDS: METOCLOPRAMIDE INJ 10MG/2ML VIAL (J2765 PER 1) IV PRN (17:59)
[2020-08-09] MEDS: DEXTROSE 50% 50 ML SYRINGE IV PRN ×2 (18:00→21:35)
[2020-08-09] MEDS: cefTRIAXone SOD 2 GM in D5W MINI-BAG PLUS 50 ML IV SCH (20:00)
[2020-08-09] MEDS: ENOXAPARIN 40MG/0.4ML SYRINGE (J1650 PER 10MG) SC SCH (21:35)
[2020-08-09] MEDS: AMITRIPTYLINE 25MG TABLET PO SCH (21:35)
[2020-08-09] MEDS: CHLORASEPTIC SPRAY MT PRN (21:36)
[2020-08-09] MEDS: ACETAMINOPHEN TAB 650MG DOSE (2X325MG) PO PRN (21:50)
[2020-08-09] MEDS: CEPACOL LOZENGE PO PRN (21:51)
[2020-08-10] VITALS (11 sets, daily range): BP systolic 89–148; BP diastolic 57–75; O2SAT 90–95
[2020-08-10 01:29] LABS: CALCIUM LEVEL 7.6 MG/DL (8.5-10.1); CREATININE FOR GFR 3.02 MG/DL (0.70-1.30); GLOMERULAR FILTRATION RATE 23.3 (>56); PHOSPHORUS LEVEL 3.5 MG/DL (2.5-4.9); POTASSIUM SERUM 4.4 MEQ/L (3.5-5.1)
[2020-08-10 05:40] LABS: BASO % 0.2 % (0.0-1.0); EOS % 0.5 % (0.0-3.0); HEMATOCRIT 28.8 % (42.0-52.0); HEMOGLOBIN 9.3 g/dl (13.5-17.5); LYMPH # 1.2 10^3/uL (1.5-5.0); LYMPH % 27.6 % (24.0-44.0); MEAN CORPUSCULAR HEMOGLOBIN 27.8 pg (27.0-33.0); MEAN CORPUSCULAR HGB CONC 32.3 g/dl (32.0-36.5); MONO # 0.4 10^3/uL (0.0-0.8); MONO % 8.6 % (0.0-5.0); NEUTROPHILS # 2.6 10^3/uL (1.5-8.5); NEUTROPHILS % 61.2 % (36.0-66.0); PLATELET COUNT, AUTOMATED 178 10^3/uL (150-450); RED BLOOD COUNT 3.35 10^6/uL (4.30-6.10); WHITE BLOOD COUNT 4.3 10^3/uL (4.0-10.0)
[2020-08-10 05:51] LABS: INR 1.08; PROTHROMBIN TIME 14.2 SECONDS (12.5-14.3)
[2020-08-10 05:52] LABS: PARTIAL THROMBOPLASTIN TIME 56.9 SECONDS (24.2-38.5)
[2020-08-10 05:54] LABS: D-DIMER QUANT 846.45 ng/ml (<500)
[2020-08-10 06:07] LABS: ACETONE/KETONE 5.49 MG/DL (<2.81); ALBUMIN 1.9 GM/DL (3.2-5.2); ALT/SGPT 15 U/L (12-78); BILIRUBIN,DIRECT < 0.1 MG/DL (0.0-0.2); BILIRUBIN,TOTAL 0.2 MG/DL (0.2-1.0); BLOOD UREA NITROGEN 44 MG/DL (7-18); CALCIUM LEVEL 7.6 MG/DL (8.5-10.1); CARBON DIOXIDE LEVEL 22 MEQ/L (21-32); CHLORIDE LEVEL 109 MEQ/L (98-107); CREATININE FOR GFR 2.81 MG/DL (0.70-1.30); FERRITIN 208 NG/ML (26-388); GLOMERULAR FILTRATION RATE 25.4 (>56); GLUCOSE, FASTING 81 MG/DL (70-100); IRON (FE) 18 UG/DL (65-175); MAGNESIUM LEVEL 1.9 MG/DL (1.8-2.4); NT-PRO BNP 2875 PG/ML (<125); PERCENT SATURATION 8.6 % (19.7-50.0); POTASSIUM SERUM 4.1 MEQ/L (3.5-5.1); SODIUM LEVEL 138 MEQ/L (136-145); TOTAL IRON BINDING CAPACITY 209 UG/DL (250-450); TOTAL PROTEIN 4.6 GM/DL (6.4-8.2)
[2020-08-10] MEDS: HumaLOG INSULIN (NovoLOG) PER UNIT SC SCH ×4 (07:30→20:08)
[2020-08-10] MEDS: ASPIRIN 81 MG ENTERIC TAB PO SCH (08:26)
[2020-08-10] MEDS ORDERED: LEVEMIR (INSULIN DETEMIR) 1 UNITS/0.01ML SC SCH (09:00)
--- NOTE | 2020-08-10 09:00 | IPN ---
PROGRESS NOTE DATE: 08/09/2020 SUBJECTIVE: The patient's labs, images and last 24 events were electronically monitored by myself. His urine output was reviewed. Change in his renal panel from yesterday to today was noted. The patient's renal function is worse today as compared with yesterday. He was also found to be hyperglycemic today morning with blood sugar levels more than 500 and he was acidotic on the latest labs. OBJECTIVE: VITAL SIGNS: Temperature today morning was 98.4 degrees Fahrenheit. T-max was 99.3 degrees Fahrenheit orally, blood pressure 160/76, pulse was 102, respiratory rate of 24, saturating 95% on room air. INTAKE AND OUTPUT: Urine output recorded as 1075 mL yesterday and by the time I reviewed his labs and intake and output in the morning his urine output was 400. Weight on the bed scale is not available. The patient's physical examination was not performed. He is admitted in the COVID-19 unit. He is being electronically monitored. LABORATORY DATA: CBC showed a WBC of 5.6, hemoglobin of 9.8, platelets of 182,000. His hemoglobin was 7.l2 yesterday. He has been given 2 units of PRBC transfusion. His INR today was 1.08. BMP today morning showed sodium 135, potassium of 5.3, chloride 108, bicarbonate 17, BUN 44, creatinine of 3.2. GFR 21.8. Glucose was 501. Calcium 7.6. Magnesium 1.6. C-reactive protein 14.3. Beta hydroxybutyrate today morning was 23.56. Calculated anion gap according to patient's albumin is 14. ASSESSMENT AND PLAN: 1. Acute renal failure. It is multifactorial secondary to COVID-19 infection. Contrast induced nephropathy and use of VARINDER inhibitors. Now the patient has DKA. The patient's creatinine is staying stable since yesterday. I am hopeful that his renal function should improve over the next few days. 2. High anion gap metabolic acidosis. The patient has diabetic ketoacidosis. His beta hydroxybutyrate is elevated. Calculated anion gap according to albumin is elevated. I discussed this with the medical team, Hospitalist, DR. ОЛЬГА LINTON. She will be starting back on an insulin drip. Administration of fluid will be according to the Hospitalist service according to assessment of the volume status because I have not physically seen the patient. 3. Hyperkalemia, it is secondary to DKA, acute renal failure and acidosis. Potassium level should hopefully improve with improvement in the acidosis. No need of Kayexalate administration at this time. 4. Hyponatremia. Patient has pseudohyponatremia related to hyperglycemia. Sodium level should improve with the improvement in the hyperglycemia. 5. Hypertension. Blood pressure is controlled at this time with current dose of amlodipine. Avoid use of VARINDER inhibitors at this time since the patient is in acute renal failure. 6. COVID-19 infection. Management is as per the management team. Patient is currently stable on room air.
[2020-08-10] MEDS: DOXYCYCLINE HYCLATE 100 MG in D5W MINI-BAG PLUS 100 ML IV SCH ×2 (09:46→21:13)
[2020-08-10] MEDS: LEVEMIR (INSULIN DETEMIR) 1 UNITS/0.01ML SC SCH (10:19)
[2020-08-10] MEDS: ACETAMINOPHEN TAB 650MG DOSE (2X325MG) PO PRN (13:32)
--- NOTE | 2020-08-10 16:01 | IPNPDOC ---
Text Note Date of Service The patient was seen on 08/10/20. NOTE SUBJECTIVE: -No acute events, some asymptomatic hypoglycemia overnight, DKA resolved. Some nausea but improved -Making adequate amounts of urine OBJECTIVE: VITAL SIGNS: HDS, now on room air, afebrile GENERAL APPEARANCE: Awake, alert, oriented to person, place and time, NAD HEENT: NCAT, EOMI, MMM, clear posterior oropharynx without exudates. No cervical lymphadenopathy or thyromegaly. CARDIOVASCULAR: RRR, S1, S2, sinus rhythm LUNGS: Diminished breath sounds, continues to have R basilar fine crackles. ABDOMEN: Normoactive bowel sounds, soft, nontender, nondistended. No hepatosplenomegaly EXTREMITIES: No cyanosis, clubbing or pitting edema, WWP NEURO: moving all extremities, grossly nonfocal LABORATORY DATA: Reviewed IMAGIN08/08/2020: Renal US: Scanning at the level of the urinary bladder confirms smooth bladder garzon. No extravesical lesion is seen. Prostate dimensions by transabdominal sonography are 3.6 x 4.4 x 3.5 cm, calculated volume 29 mL.. Renal cortical echogenicity pattern is normal bilaterally and contours are smooth. There is no evidence of hydronephrosis, cyst, mass, or calculus in either kidney. The right kidney measures 10.9 x 5.3 x 4.4 cm. Left renal dimensions are 10.1 x 4.8 x 4.6 cm. IMPRESSION: Normal urinary tract sonography. 08/06/20 ct chest Axial contrast enhanced images from the thoracic inlet to the upper abdomen usi ng pulmonary embolus technique with multiplanar re-formations. 75 ml Isovue 370 intravenous contrast material administered without complication. This CT examination was performed using the following dose reduction techniques: Automated exposure control, adjustment of mA and/or kv according to the patient's size, and use of iterative reconstruction technique. FINDINGS: Satisfactory enhancement of the pulmonary vasculature is achieved and no filling defects are identified to suggest pulmonary embolus. Further evaluation of the mediastinum demonstrates normal thoracic aorta, heart and pericardium. The bilateral lung ghotra demonstrate primarily lower lobe atelectasis and early consolidations with small pleural effusions along with reactive adenopathy. Tracheobronchial tree is patent. Thyroid gland is relatively normal by CT evaluation. Surrounding musculoskeletal structures are intact and without focal osseous abnormality. IMPRESSION: 1. No evidence for pulmonary embolus. 2. Bibasilar atelectasis and early forming consolidations with small pleural effusions and reactive adenopathy. Findings most compatible with multifocal pneumonia. 08/06/20 CT Neck: FINDINGS: The naso, terrie and hypopharynx, larynx and subglottic trachea are normal in appearance. Parapharyngeal and retropharyngeal spaces are normal. The salivary and thyroid glands are normal in size and density. Small lymph nodes less than 1 cm in size are present and essentially nonspecific. The lung apices are clear. The visualized sinuses are clear. Vasculature is relatively symmetric and normal. IMPRESSION: No obvious abnormality. MICROBIOLOGY: Please see below. ASSESSMENT: 50 y/o male w CKD, HTN, DM presents with 4 days of decreased appetite, sore throat, dry cough and admitted with Covid 19 multifocal Pneumonia with course c/b oliguric RAFAEL, DKA and labile blood sugars. Covid 19 multifocal pneumonia with hypoxia -O2 saturation is 96% on room air -Patient did not meet inclusion criteria for remdesevir given that symptoms have been going on for >7d, discontinued -Continue to cycle inflammatory markers, sputum culture with mixed laquita pending speciation and sensitivities, with procalcitonin of 9.3 -continue CFX/doxy for concurrent bacterial PNA given elevated procalcitonin, CXR findings and mixed sputum laquita. MRSA PCR was negative Superimposed mixed laquita CAP: -continue CFX/doxy, day #4, for concurrent bacterial PNA given elevated procalcitonin, CXR findings and mixed sputum laquita. MRSA PCR was negative Pharyngitis -Rapid strep screen negative -Most likely viral from Covid 19, infection -Supportive care with lozenges and spray -hydration and PRN zofran and reglan for nausea, emesis Dehydration: -s/p fluids Hypertension -Holding home ACEi Diabetes c/b DKA i/s/o steroids and initially dehydrated. -consistent carb diet -levemir at 35u daily -SSI AC/HS -FSBG AC/HS Oliguric RAFAEL on Chronic kidney disease, worsening in the setting of recent contrast at admission and ACEi. -Monitor renal function that appears to have worsened despite hydration --> e- consulting nephrology. Dr. Ortiz agreed with blood repletion and stopping fluids and strict I/Os. -Renal US wnl -Strict I's and O's, daily weights and avoid nephrotoxins -holding home ACEi -UOP is improving, continue to monitor Cr Acute on chronic anemia: -s/p 2u pRBCs -f/u ferritin, retic, B12 and folate DVT prophylaxis with Lovenox once daily Full code VS,Fishbone, I+O VS, Fishbone, I+O Laboratory Tests 08/09/20 15:40 08/10/20 00:42 08/10/20 05:15 Vital Signs Date Time Temp Pulse Resp B/P (MAP) Pulse Ox O2 Delivery O2 Flow Rate FiO2 08/10/20 06:00 84 21 116/66 (83) 91 Nasal Cannula 2.0 08/10/20 04:00 98.0 I&O- Last 24 Hours up to 6 AM 08/10/20 06:00 Intake Total 1901 ml Output Total 800 ml Balance 1101 ml ОЛЬГА LINTON MD Aug 10, 2020 07:53
[2020-08-10] MEDS: cefTRIAXone SOD 2 GM in D5W MINI-BAG PLUS 50 ML IV SCH (19:58)
[2020-08-10] MEDS: AMITRIPTYLINE 25MG TABLET PO SCH (19:58)
[2020-08-10] MEDS: ENOXAPARIN 40MG/0.4ML SYRINGE (J1650 PER 10MG) SC SCH (19:59)
--- NOTE | 2020-08-10 22:49 | IPN ---
NEPHROLOGY PROGRESS NOTE DATE: 08/10/2020 SUBJECTIVE: The patient's labs, images, intake and output and last 24-hour events were noted. His chart was reviewed. The patient was started on an insulin drip yesterday because of diabetic ketoacidosis. Later last night he was hypoglycemic. Insulin drip has been stopped. Levemir dose was increased. Renal function is getting better now. Creatinine has slightly trended down to 2.8 now. The patient has been transferred out of the ICU into the [place] [id number] medical unit. He is non-oliguric at this time. OBJECTIVE: VITAL SIGNS: Temperature is 100.3 degrees Fahrenheit, blood pressure is 140/66, pulse is 92, respiratory rate of 20, saturating 92% on nasal cannula at 3 liters. INTAKE AND OUTPUT: Urine output recorded as 800 mL yesterday, 550 mL today since overnight. PHYSICAL EXAMINATION: It was not performed. The patient was electronically monitored. LAB REVIEW: CBC showed a WBC 4.3, hemoglobin 9.3, platelet count 178. INR is 1.08, PTT is 56.9. BMP today morning showed sodium of 138, potassium 4.1, chloride 109, bicarbonate 22, BUN 44, creatinine is 2.8. It was 3.2 yesterday. Glucose 81, calcium 7.6, iron 18, TIBC 209, transferrin saturation 8.6, ferratin is 208. C-reactive protein is 11.1 which is slightly better than yesterday. Pro BNP is 2,875. Procalcitonin is 3.9. IMAGING: There is no new x-ray available at this time. CURRENT INPATIENT MEDICATIONS: The patient's medications were all reviewed by myself. He continues to be on IV Ceftriaxone and Doxycycline. Insulin drip has been stopped. He is on insulin Levemir 35 units subcutaneously daily along with insulin sliding scale. ASSESSMENT AND PLAN: 1. Acute renal failure It is multifactorial [facility], use of ACEi, contrast induced nephropathy and recent diabetic ketoacidosis. Renal function is slowly improving. Decision to give fluids is as per Medical Team. 2. Diabetic ketoacidosis: Beta hydroxybutyrate is still elevated but better than yesterday. Glucose levels are better controlled. Insulin has been switched to Levemir now. 3. Hyperkalemia it has resolved now with improvement in the glucose levels and acidosis. 4. Hypertension - blood pressure is controlled with Amlodipine. Avoid use of Low or ARB at this time. 5. COVID-19 infection he is being managed for Community acquired pneumonia in addition to COVID-19 infection. Continue current antibiotics. Patients are supposed to be kept a little bit on the germ drier side because of requirement of oxygen. However it is technical in this patient given that he has acute renal failure and has diabetic ketoacidosis as well. The patient can get p.r.n. Lasix injections if he develops volume overload. According to his daily weight, he is one kg above his weight from 2 days ago. MTDD
[2020-08-11] VITALS: O2SAT 91
[2020-08-11 04:00] VITALS: BP 132/76
[2020-08-11 04:05] VITALS: O2SAT 92
[2020-08-11 08:00] VITALS: O2SAT 95
[2020-08-11] MEDS ORDERED: ASPI81TAEC PO (09:03)
[2020-08-11] MEDS ORDERED: LEVO750T14 PO (09:03)
[2020-08-11] MEDS ORDERED: PROAAER10 INH (09:03)
[2020-08-11] MEDS ORDERED: ZOFR4TAB16 PO (09:03)
[2020-08-11] MEDS ORDERED: SORE15LO PO (09:03)
[2020-08-11] MEDS ORDERED: TESS100C PO (09:03)
[2020-08-11] MEDS ORDERED: AMLO1TAB25 PO (09:24)
--- NOTE | 2020-08-11 09:30 | DS.PDOC ---
Discharge Summary General Date of Admission Aug 06, 2020 at 16:08 Date of Discharge 08/11/2020 Attending Physician: ОЛЬГА LINTON MD Discharge Summary PROCEDURES PERFORMED DURING STAY: TLC catheter placement by Dr. Snyder ADMITTING DIAGNOSES: covid-19 PNA DISCHARGE DIAGNOSES: covid-19 PNA covid-19 associated gastroenteritis Superimposed CAP DKA RAFAEL on CKD HTN COMPLICATIONS/CHIEF COMPLAINT: 2019 Novel Coronavirus Infected Pneumonia. HISTORY OF PRESENT ILLNESS: 50 y/o M w CKD, HTN, DM who presented with 4 days of decreased appetite, sore throat, dry cough without chest pain, pressure, tightness, fever, chills, nausea, vomiting, diarrhea, abdominal pain, anosmia, dysgeusia, headache, changes in vision, weight gain, weight loss, dysuria, urgency, frequency or shortness of breath . He denied paroxysmal nocturnal dyspnea, orthopnea, lower extremity edema, bright red blood per rectum, melena, or black tarry stools and complained of not feeling well, prompting him to come to the emergency room for evaluation where he was found to be covid -19 positive but 96% on room air with ambulation. He c/o hoarse voice , without dysphagia or odynophagia with dyspnea on exertion. HOSPITAL COURSE: In the ED, CTA chest showed bilateral infiltrates and bibasilar early consolidation and small pleural effusions with acute PE and CT neck was negative for acute abnormality and he was admitted to medicine for Covid 19 multifocal Pneumonia and pharyngitis. He was initially placed on remdesivir and dexamethasone on day 1 but was discontinued by day 2 because of he was stable on room air with mild elevation of his inflammatory markers with most of his symptoms actually having been GI with N/V/D. Unfortunately due to the contrast and his benazapril, he developed an RAFAEL on CKD with oliguria and he had some hydration with improvement of his RAFAEL and robust UOP. He also developed DKA for which he required transfer to ICU for insulin gtt. He also had anemia that seems progressive and slow without evidence of acute bleeding GI or any other type and he received 2u pRBCs in total. He did have a progressively positive procalcitonin and there was suspicion of superimposed CAP and was treated with CFX/doxy. I will discharge him with 4 more days of levaquin to complete a course. Of note, due to the RAFAEL, his ACEi was held and he was switched to novarsc. I am discharging him on novarsc and stopping benazepril until RAFAEL has resolved, which I am deferring decision and timing of restarting to PCP and nephrology. DISCHARGE MEDICATIONS: Please see below. ALLERGIES: Please see below. PHYSICAL EXAMINATION ON DISCHARGE: VITAL VITAL SIGNS: HDS, now on room air, afebrile GENERAL APPEARANCE: Awake, alert, oriented to person, place and time, NAD HEENT: NCAT, EOMI, MMM, clear posterior oropharynx without exudates. No cervical lymphadenopathy or thyromegaly. CARDIOVASCULAR: RRR, S1, S2, sinus rhythm LUNGS: Improved but still quite diminished breath sounds, continues to have R basilar trace crackles. ABDOMEN: Normoactive bowel sounds, soft, nontender, nondistended. No hepatosplenomegaly EXTREMITIES: No cyanosis, clubbing or pitting edema, WWP NEURO: moving all extremities, grossly nonfocal LABORATORY DATA: Please see below. IMAGIN08/08/2020: Renal US: Scanning at the level of the urinary bladder confirms smooth bladder garzon. No extravesical lesion is seen. Prostate dimensions by transabdominal sonography are 3.6 x 4.4 x 3.5 cm, calculated volume 29 mL.. Renal cortical echogenicity pattern is normal bilaterally and contours are smooth. There is no evidence of hydronephrosis, cyst, mass, or calculus in either kidney. The right kidney measures 10.9 x 5.3 x 4.4 cm. Left renal dimensions are 10.1 x 4.8 x 4.6 cm. IMPRESSION: Normal urinary tract sonography. 08/06/20 CTA chest Axial contrast enhanced images from the thoracic inlet to the upper abdomen using pulmonary embolus technique with multiplanar re-formations. 75 ml Isovue 370 intravenous contrast material administered without complication. This CT examination was performed using the following dose reduction techniques: Automated exposure control, adjustment of mA and/or kv according to the patient's size, and use of iterative reconstruction technique. FINDINGS: Satisfactory enhancement of the pulmonary vasculature is achieved and no filling defects are identified to suggest pulmonary embolus. Further evaluation of the mediastinum demonstrates normal thoracic aorta, heart and pericardium. The bilateral lung ghotra demonstrate primarily lower lobe atelectasis and early consolidations with small pleural effusions along with reactive adenopathy. Tracheobronchial tree is patent. Thyroid gland is relatively normal by CT evaluation. Surrounding musculoskeletal structures are intact and without focal osseous abnormality. IMPRESSION: 1. No evidence for pulmonary embolus. 2. Bibasilar atelectasis and early forming consolidations with small pleural effusions and reactive adenopathy. Findings most compatible with multifocal pneumonia. 08/06/20 CT Neck: FINDINGS: The naso, terrie and hypopharynx, larynx and subglottic trachea are normal in appearance. Parapharyngeal and retropharyngeal spaces are normal. The salivary and thyroid glands are normal in size and density. Small lymph nodes less than 1 cm in size are present and essentially nonspecific. The lung apices are clear. The visualized sinuses are clear. Vasculature is relatively symmetric and normal. IMPRESSION: No obvious abnormality. PROGNOSIS: Good ACTIVITY: As tolerated DIET: consistent carb DISCHARGE PLAN: Home with PCP follow up. Levaquin for 4d, amlodipine in place of benazepril, albuterol inh PRN, tessalon perls and ASA 81. DISPOSITION: Home DISCHARGE INSTRUCTIONS: 1. Home with PCP follow up. Levaquin for 4d, amlodipine in place of benazepril, albuterol inh PRN, tessalon perls and ASA 81. ITEMS TO FOLLOWUP ON ON OUTPATIENT: 1. Covid-19 PNA and gastroenteritis resolution 2. CAP resolution 3. glycemic control 4. RAFAEL on CKD DISCHARGE CONDITION: Stable TIME SPENT ON DISCHARGE: 54 minutes. Vital Signs/I&Os Vital Signs Date Time Temp Pulse Resp B/P (MAP) Pulse Ox O2 Delivery O2 Flow Rate FiO2 08/11/20 04:05 92 Room Air 08/11/20 04:05 08/11/20 04:00 99.8 101 20 132/76 (94) I&O- Last 24 Hours up to 6 AM 08/11/20 06:00 Intake Total 870 ml Output Total 550 ml Balance 320 ml Laboratory Data Labs 24H Laboratory Tests 2 08/10/20 10:02: Bedside Glucose (Misc Panel) 268H 08/10/20 11:51: Bedside Glucose (Misc Panel) 301H 08/10/20 20:05: Bedside Glucose (Misc Panel) 48L FSBS Laboratory Tests Test 08/10/20 10:02 08/10/20 11:51 08/10/20 20:05 Range/Units Bedside Glucose (Misc Panel) 268 301 48 70-105 MG/DL Microbiology Microbiology 08/08/20 Gram Stain - Final, Resulted 08/08/20 Sputum Culture - Preliminary, Resulted Yeast Like Organism Staphylococcus Aureus 08/07/20 Eye/Ear/Nose/Throat Culture - Final, Complete 08/07/20 Blood Culture - Preliminary, Resulted No Growth after 72 hours. All specime... 08/07/20 Blood Culture - Preliminary, Resulted No Growth after 72 hours. All specime... 08/06/20 Group A Streptococcus Screen (LUPE) - Final, Complete Discharge Medications Scheduled Amitriptyline HCl (Amitriptyline HCl) 75 Mg Tab, 75 MG PO QHS, (Reported) Aspirin (Aspirin EC) 81 Mg Tablet.dr, 81 MG PO DAILY Benazepril HCl (Benazepril HCl) 5 Mg Tab, 5 MG PO DAILY, (Reported) Benzonatate (Tessalon Perle) 100 Mg Capsule, 1 CAP PO TID for cough Insulin Aspart (Novolog) 100 Unit/1 Ml Cartridge, 1 DOSE SC AC PER SLIDING SCALE Insulin Glargine,Hum.rec.anlog (Toujeo Solostar) 300 Unit/1 Ml Insuln.pen, 36 UNIT SC DAILY levoFLOXacin (levoFLOXacin) 750 Mg Tablet, 750 MG PO DAILY Scheduled PRN Albuterol Sulfate (Proair Hfa) 8.5 Gm Hfa.aer.ad, 2 PUFF INH Q4-6HP PRN for wheezing Benzocaine/Menthol (Sore Throat Lozenge) 1 Each Lozenge, 2 SÁNCHEZ PO Q2HP PRN for SORE THROAT Ondansetron HCl (Zofran) 4 Mg Tablet, 1 TAB PO Q6-8HP PRN for nausea/vomiting Allergies Coded Allergies: gabapentin (Verified Allergy, Mild, SWELLING, 05/26/19) ОЛЬГА LINTON MD Aug 11, 2020 09:30
[2020-08-11] MEDS: DOXYCYCLINE HYCLATE 100 MG in D5W MINI-BAG PLUS 100 ML IV SCH (10:00)
[2020-08-11] MEDS: LEVEMIR (INSULIN DETEMIR) 1 UNITS/0.01ML SC SCH (10:19)
[2020-08-11] MEDS: ASPIRIN 81 MG ENTERIC TAB PO SCH (10:20)
[2020-08-11] MEDS: HumaLOG INSULIN (NovoLOG) PER UNIT SC SCH ×2 (10:20→12:00)
[2020-08-11 10:22] VITALS: BP 121/60
[2020-08-11 12:00] VITALS: O2SAT 94
[2020-08-11 13:18] LABS: VITAMIN B12 LEVEL 389 PG/ML (247-911)
[2020-08-13 12:07] LABS: BODY FLUID CULTURE Not indicated. (.); LEGIONELLA ANTIGEN URINE Negative (Negative); ORGANISM ID Not indicated. (.); SPECIMEN SOURCE Urine (.); URINE STREP PNEUMONIAE ANTIGEN Negative (Negative)
== END 2020-08-11 12:45 | disposition home or self-care (01) | DRG 177 ==
LOC: M ED 09:24 → M ED INP 16:08 → M 4MAIN 22:39 → M ICU 08-07 13:00 → M 4MAIN 08-10 13:33
PROVIDERS: ADMIT General Practice; ATTEND Internal Medicine
PROC: XW033E5 Introduction of Remdesivir Anti-infective into Peripheral Vein, Percutaneous Approach, New Technology Group 5 (ICD-10-PCS; 2020-08-06)
PROC: 3E0333Z Introduction of Anti-inflammatory into Peripheral Vein, Percutaneous Approach (ICD-10-PCS; 2020-08-06)
PROC: 02HV33Z Insertion of Infusion Device into Superior Vena Cava, Percutaneous Approach (ICD-10-PCS; principal; 2020-08-07)
PROC: 30233N1 Transfusion of Nonautologous Red Blood Cells into Peripheral Vein, Percutaneous Approach (ICD-10-PCS; 2020-08-08)
DX: U07.1 COVID-19 (principal); J12.89 Other viral pneumonia; N17.9 Acute kidney failure, unspecified; E87.1 Hypo-osmolality and hyponatremia; E11.10 Type 2 diabetes mellitus with ketoacidosis without coma; I12.9 Hypertensive chronic kidney disease with stage 1 through stage 4 chronic kidney disease, or unspecified chronic kidney disease; E86.0 Dehydration; E87.5 Hyperkalemia; E11.65 Type 2 diabetes mellitus with hyperglycemia; N18.30 Chronic kidney disease, stage 3 unspecified; Z66 Do not resuscitate; J02.9 Acute pharyngitis, unspecified; K52.9 Noninfective gastroenteritis and colitis, unspecified; E11.22 Type 2 diabetes mellitus with diabetic chronic kidney disease; Z79.4 Long term (current) use of insulin; Z79.899 Other long term (current) drug therapy; T50.8X5A Adverse effect of diagnostic agents, initial encounter